=== PATIENT | female | born 1985 | race Caucasian/White ===

== ENCOUNTER 2023-01-27 08:28 | Emergency (ER) | payer BC, OTHER, SELFPAY ==
[2023-01-27] VITALS (10 sets, daily range): BP systolic 116–138; BP diastolic 65–84; PULSE 64–90; RESP 18–20; TEMP 36.6–36.9; O2SAT 95–100
--- NOTE | ~2023-01-27 | CT_ITS ---
EXAMINATION: CT brain wo con INDICATION: Headache COMPARISON: None TECHNIQUE: Standard unenhanced head CT. The dose-length product (DLP) was 605.33 mGy-cm. The mA was a djusted according to patient size. Iterative reconstruction technique was employed. FINDINGS: There is no intracranial hemorrhage, acute infarction, or abnormal mass lesion. The ventric les are normal. There is no abnormal mass effect or midline shift. The malone-white matter differentiat ion is normal. The basal cisterns are patent. The orbits are normal. The paranasal sinuses, mastoids and calvarium are normal. IMPRESSION: 1. No acute intracranial abnormality. Reviewed, dictated and finalized at location A.
--- NOTE | 2023-01-27 08:39 | ED.DIZZY ---
HPI - Dizziness General Chief Complaint: Dizziness Stated Complaint: lightheaded Time Seen by Provider: 01/27/23 08:39 Source: patient Mode of arrival: ambulatory Limitations: no limitations History of Present Illness HPI Narrative: 37-year-old female with no significant past medical history presents to the ER with a 2 day history of -- episodic lightheadedness. She was driving 2 days ago when she developed an episode of lightheadedness which lasted 10 minutes with spontaneous resolution. She does not have vertigo. A lightheadedness appears to get better when she gets up and starts moving around. -- subsequently she developed headache which is Occipital. headache is rated as 2/10. she has a history of intermittent headaches. No focal neuro deficit. No chest pain or shortness of breath MD elicited complaint: lightheadedness Onset (ago): day(s) ( started 2 days ago) Timing: sudden onset Severity: severe Description: lightheadedness, off-balance and near-syncope History of similar symptoms: No Exacerbating factors: position/lying down Relieving factors: other ( dizziness is better when she gets up) Associated symptoms: denies other symptoms Stroke scale total: 0 Related Data Home Medications Medication Instructions Recorded Confirmed norethindrone 1 mg-ethinyl 1 tablet PO DAILY 01/27/23 01/27/23 estradiol 20 mcg (21)-iron 75 mg (7) tablet (Michi Fe 09/29 (28)) Allergies Allergy/AdvReac Type Severity Reaction Status Date / Time No Known Allergies Allergy Mild Verified 11/19/09 17:13 Review of Systems Review of Systems: All systems reviewed & are unremarkable except as noted in HPI and below Constitutional: Constitutional: Reports as per HPI and Reports no additional constitutional complaints Eyes: Eyes: Reports as per HPI and Reports no additional eye complaints ENT: Reports system reviewed and no additional complaints, except as documented and Reports as per HPI Cardiovascular: Cardiovascular: Reports as per HPI and Reports no additional cardiovascular complaints Respiratory: Respiratory: Reports as per HPI and Reports no additional respiratory complaints Gastrointestinal: Gastrointestinal: Reports as per HPI and Reports no additional gastrointestinal complaints Genitourinary: Genitourinary: Reports no additional female genitourinary complaints Musculoskeletal: Musculoskeletal: Reports no additional musculoskeletal complaints and Reports as per HPI Integumentary/Breasts: Skin/Breast: Reports system reviewed and no additional complaints, except as docu and Reports as per HPI Neurologic: Reports system reviewed and no additional complaints, except as documented and Reports as per HPI Psychiatric: Psychiatric: Reports no additional psychiatric complaints and Reports as per HPI Endocrine: Endocrine: Reports no additional endocrine complaints and Reports as per HPI Hematologic/Lymphatic: Hematologic/Lymphatic: Reports no additional hematologic/lymphatic complaints and Reports as per HPI Allergic/Immunologic: Allergic/Immunologic: Reports no additional allergic/immunologic complaints and Reports as per HPI Exam Narrative: patient's systolicpressure decreases from 132 to 130 from standing to sleeping heart rate drops from 80-65 standing to sleeping Const: General: healthy appearing Nutritional Appearance: well nourished Orientation/consciousness: patient oriented x3 Limitations: no limitations HENMT: Head: normal to inspection Ears: TM's normal bilaterally Face/Nose/Sinus: Normal external nose present Face and sinus: normal facial exam Mouth: Yes Normal oral and palatal mucosa present Teeth and gingiva: dentition normal Throat: posterior oropharynx normal Eyes: Conjunctivae: conjunctivae normal Pupils: Equal, round and reactive pupils present EOM: EOMs intact bilaterally Direct Ophthalmoscopy: no photophobia Neck: Neck: normal visual inspection, no lymphadenopathy and no meninge
[2023-01-27 08:41] LABS: Glucose Point of Care 122 mg/dl (65-105)
--- NOTE | 2023-01-27 09:09 | ECG_ITS ---
Measurements Intervals [place] Rate: 62 P: 39 TX: 155 QRS: 29 QRSD: 89 T: 44 QT: 404 QTc: 412 Interpretive Statements SINUS RHYTHM WITH SINUS ARRHYTHMIA BASELINE ARTIFACT- I, III, AVR, AVL, AVF NORMAL ECG NO PREVIOUS ECG AVAILABLE FOR COMPARISON Electronically Signed On 01-27-2023 11:48:40 CDT by Luciano Deal D.O.
[2023-01-27 09:29] LABS: Basophils Absolute Auto 0.03 K/mm3 (0.00-0.10); Basophils Percent Auto 0.3 % (0.0-1.0); Eosinophils Absolute Auto 0.12 K/mm3 (0.02-0.50); Eosinophils Percent Auto 1.3 % (1.0-6.0); Hematocrit 41.6 % (35.0-49.0); Hemoglobin 13.2 g/dL (12.0-15.0); Immature Granulocyte Absolute 0.02 K/mm3 (0.00-0.00); Immature Granulocyte Percent A 0.2 % (0.0-0.0); Lymphocytes Absolute Auto 2.44 K/mm3 (1.10-4.50); Lymphocytes Percent Auto 26.7 % (18.0-42.0); Mean Corpuscular HGB Conc 31.7 g/dL (32.0-36.0); Mean Corpuscular Hemoglobin 29.1 pg (27.0-31.0); Mean Corpuscular Volume 91.6 fL (78.0-102.0); Mean Platelet Volume 10.4 fl (9.2-11.8); Monocytes Absolute Auto 0.57 K/mm3 (0.10-0.90); Monocytes Percent Auto 6.2 % (2.0-11.0); Neutrophils Percent Auto 65.3 % (50.0-70.0); Platelet Count Result 258 K/mm3 (150-420); Red Blood Count 4.54 M/mm3 (4.20-5.40); Red Cell Distribution Width 12.3 % (11.6-14.4); White Blood Count 9.1 K/mm3 (4.8-10.8)
[2023-01-27 09:47] LABS: Lactic Acid Reflex 2.5 mmol/L (0.4-2.0)
[2023-01-27 09:49] LABS: Alanine Aminotransferase 11 U/L (14-59); Albumin Level 3.2 g/dL (3.4-5.0); Alkaline Phosphatase 60 U/L (46-116); Anion Gap 11 mmol/L (8-16); Aspartate Amino Transferase < 10 U/L (15-37); Bilirubin,Total 0.2 mg/dL (0.00-1.00); Blood Urea Nitrogen 14 mg/dL (7-18); Calcium 8.7 mg/dL (8.5-10.1); Carbon Dioxide 23 mmol/L (21-32); Chloride 105 mmol/L (98-108); Estimated CRCL calculation 113 ml/min; Estimated Glomerular Filt Rate > 60; Glucose 131 mg/dL (70-99); NT Pro B Type Natriuretic Pept 146 pg/mL (0-125); Osmolality Calculated 290 mOsm/kg (285-295); Potassium 3.6 mmol/L (3.5-5.1); Sodium 139 mmol/L (136-145); Total Protein 7.3 g/dL (6.4-8.2)
[2023-01-27 09:54] LABS: Thyroid Stimulating Hormone 6.41 uIU/mL (0.36-3.74)
[2023-01-27 09:55] LABS: Troponin I < 4.0 ng/L (0.00-60.4)
[2023-01-27 10:04] LABS: Influenza A QL RT-PCR Negative (Negative); Influenza B QL RT-PCR Negative (Negative); SARS-CoV-2 RNA PCR Negative (Negative)
[2023-01-27 10:15] LABS: RSV RNA, RT-PCR Negative (Negative)
[2023-01-27] MEDS: ACETAMINOPHEN 325 MG TABLET 650 MG PO (10:17)
[2023-01-27 10:22] LABS: Appearance Urine Clear (Clear); Bilirubin Urine Negative (Negative); Blood Urine 2+ (Negative); Color Urine Light Yellow (Yellow); Glucose Urine UA Negative (Negative); Ketones Urine Negative (Negative); Leukocyte Esterase Ur Negative LEU/UL (Negative); Nitrate Urine Negative (Negative); Protein Urine Negative (Negative); Urobilinogen Urine 0.2 mg/dL (0.2-1.0)
[2023-01-27 10:29] LABS: Add Urine Microscopic? YES
[2023-01-27 10:30] LABS: Bacteria Urine Trace /hpf; Squamous Epithelial Cell Urine Few /hpf (Few); WBC Urine None seen /hpf (0-3)
[2023-01-27 10:31] LABS: Pregnancy On Board Control Positive; Urine Pregnancy Test Negative
[2023-01-27] MEDS: LACTATED RINGERS 1,000 ML 999 ML IV CONT (10:34)
[2023-01-27 12:26] LABS: Reflex Lactic Acid Yes or No Add Lactic
== END 2023-01-27 11:38 | disposition home or self-care (01) ==
PROVIDERS: Emergency Provider Internal Medicine Critical Care Medicine
DX: R42 Dizziness and giddiness (principal); R51.9 Headache, unspecified; R31.29 Other microscopic hematuria; E03.9 Hypothyroidism, unspecified; Z20.822 Contact with and (suspected) exposure to COVID-19
CPT/HCPCS: 36415; 70450; 80053; 81001; 81025; 82948; 83605; 83880; 84443; 84484; 85025; 87637; 93005; 96360; 99284; A9270; J7120

== ENCOUNTER 2024-01-23 12:31 | Emergency (ER) | payer OTHER, SELFPAY ==
[2024-01-23 12:34] VITALS: BP 137/73; PULSE 86; RESP 17; TEMP 36.5; O2SAT 100
--- NOTE | 2024-01-23 14:07 | ECG_ITS ---
SEE SCANNED COPY FOR CONFIRMED REPORT MTDD
[2024-01-23 14:19] VITALS: BP 133/62; PULSE 67
[2024-01-23 14:20] VITALS: BP 119/60; PULSE 63
[2024-01-23 14:22] VITALS: BP 107/78; PULSE 68
[2024-01-23] MEDS: KETOROLAC 30 MG/ML VIAL (*BKC) IV PUSH (14:36)
[2024-01-23] MEDS: SODIUM CHLORIDE 0.9% IV 1,000 ML 999 ML IV CONT (14:37)
[2024-01-23] MEDS: MECLIZINE HCL 25 MG TABLET PO (14:37)
[2024-01-23 14:54] LABS: Basophils Percent Auto 0.3 % (0.2-1.2); Eosinophils Percent Auto 0.1 % (0-4.4); Hematocrit 40.7 % (37.0-47.0); Hemoglobin 13.2 g/dL (12.0-15.0); Immature Granulocyte Absolute 0.03 K/mm3 (0.00-0.031); Immature Granulocyte Percent A 0.3 % (0-0.5); Lymphocytes Absolute Auto 1.85 K/mm3 (0.9-3.2); Lymphocytes Percent Auto 15.7 % (18.3-44.2); Mean Corpuscular HGB Conc 32.4 g/dl (32-36); Mean Corpuscular Volume 89.5 fl (80-100); Mean Platelet Volume 10.8 fl (7.4-10.4); Monocytes Absolute Auto 0.5 K/mm3 (0.1-0.6); Neutrophils Absolute Auto 9.4 K/mm3 (1.3-6.7); Neutrophils Percent Auto 79.6 % (45.5-73.1); Platelet Count Result 293 k/mm3 (150-375); Red Blood Count 4.55 M/mm3 (4.2-5.4); Red Cell Distribution Width 12.7 % (11.5-14.5); White Blood Count 11.8 K/mm3 (4.5-10.0)
[2024-01-23 15:04] LABS: Alanine Aminotransferase 20 U/L (6-35); Albumin Level 4.4 g/dL (3.5-5.1); Alkaline Phosphatase 68 U/L (38-126); Anion Gap 9 mmol/L (4-12); Aspartate Amino Transferase 21 U/L (14-36); Bilirubin,Total 0.6 mg/dL (0.2-1.3); Blood Urea Nitrogen 10 mg/dL (7-17); Carbon Dioxide 20 mmol/L (22-30); Chloride 109 mmol/L (98-107); Estimated CRCL calculation 160 ml/min; Estimated Glomerular Filt Rate > 60; Glucose 102 mg/dL (65-110); Potassium 4.3 mmol/L (3.4-5.0); Sodium 138 mmol/L (137-145)
[2024-01-23 15:32] VITALS: BP 127/64; PULSE 65; RESP 19; O2SAT 100
--- NOTE | 2024-01-23 15:42 | ED.GENADULT ---
HPI - General Adult General Chief complaint: Unspecified Stated complaint: hot flashes and headache Time Seen by Provider: 01/23/24 13:24 History of Present Illness HPI narrative: Patient is a 38-year-old female who presents ER with hot flashes and dizziness as well as headache. Ongoing over last week. She has been to multiple ERs. She has had imaging of her head. She reports the pain is in her left ear. She will be out moving she will develop a hot flash going down to her legs become lightheaded. Mild nausea. No history of vertigo. No sinus congestion or sore throat or productive cough. denies trauma. Has tried Tylenol and ibuprofen without improvement in pain. Related Data Allergies Allergy/AdvReac Type Severity Reaction Status Date / Time bupropion [From Wellbutrin] Allergy Unknown Verified 01/23/24 12:33 Review of Systems Review of Systems: All systems reviewed & are unremarkable except as noted in HPI and below Constitutional: Constitutional: Reports no additional constitutional complaints ENT: Denies ear discharge, Reports otalgia, Reports headache(s), Denies nasal congestion and Denies nasal discharge Cardiovascular: Cardiovascular: Reports no additional cardiovascular complaints Respiratory: Respiratory: Reports no additional respiratory complaints Genitourinary: Genitourinary: Reports no additional female genitourinary complaints [facility] Past Medical History Medical History (Updated 01/23/24 @ 16:38 by Valentin Goodwin MD) Depression Exam Narrative: GENERAL: Well-appearing, well-nourished, and in no acute distress. HEAD: Normocephalic, atraumatic. ENT: Mucous membranes moist. normal right TM and ear canal. Left ear canal free of cerumen and left tympanic membrane with multiple her bubbles behind it. NECK: Supple. CHEST: Clear to auscultation. No respiratory distress. HEART: Regular rate and rhythm. Normal peripheral pulses. EXTREMITIES: Normal range of motion. No edema. SKIN: Warm, dry, no rash. NEURO: Alert and oriented x3. PSYCH: Normal mood and affect. Course Course Emergency Course: Patient felt to have otalgia vertigo related to pressure behind the eardrum. Recommend scheduled antihistamines to help with this issue. Tylenol and ibuprofen for pain at home. Patient received IV fluid. Vital Signs Vital signs: Vital Signs Temperature 97.7 F 01/23/24 12:34 Pulse Rate 86 01/23/24 12:34 Respiratory Rate 17 01/23/24 12:34 Blood Pressure 137/73 01/23/24 12:34 Pulse Oximetry 100 01/23/24 12:34 Oxygen Delivery Room Air 01/23/24 12:34 Temperature 97.7 F 01/23/24 12:34 Pulse Rate 68 01/23/24 14:22 Respiratory Rate 17 01/23/24 12:34 Blood Pressure 107/78 01/23/24 14:22 Pulse Oximetry 100 01/23/24 12:34 Oxygen Delivery Room Air 01/23/24 12:34 Medical Decision Making Vital Signs Vital Signs: Vital Signs Temperature 97.7 F 01/23/24 12:34 Pulse Rate 86 01/23/24 12:34 Respiratory Rate 17 01/23/24 12:34 Blood Pressure 137/73 01/23/24 12:34 Pulse Oximetry 100 01/23/24 12:34 Oxygen Delivery Room Air 01/23/24 12:34 Temperature 97.7 F 01/23/24 12:34 Pulse Rate 68 01/23/24 14:22 Respiratory Rate 17 01/23/24 12:34 Blood Pressure 107/78 01/23/24 14:22 Pulse Oximetry 100 01/23/24 12:34 Oxygen Delivery Room Air 01/23/24 12:34 Lab Data 01/23/24 14:37 01/23/24 14:37 Labs: Lab Results 01/23/24 Range/Units 14:37 WBC 11.8 H (4.5-10.0) K/mm3 RBC 4.55 (4.2-5.4) M/mm3 Hgb 13.2 (12.0-15.0) g/dL Hct 40.7 (37.0-47.0) % MCV 89.5 (80-100) fl MCH 29.0 (26-34) pg MCHC 32.4 (32-36) g/dl RDW 12.7 (11.5-14.5) % Plt Count 293 (150-375) k/mm3 MPV 10.8 H (7.4-10.4) fl Immature Gran % (Auto) 0.3 (0-0.5) % Neut % (Auto) 79.6 H (45.5-73.1) % Lymph % (Auto) 15.7 L (18.3-44.2) % [place] % (Auto) 4.0 (2.6-8.5) % Eos % (Auto) 0.1
[2024-01-23 16:31] VITALS: BP 130/86; PULSE 78; RESP 16; O2SAT 100
== END 2024-01-23 16:57 | disposition home or self-care (01) ==
PROVIDERS: Emergency Provider Emergency Medicine
DX: H92.02 Otalgia, left ear (principal); R42 Dizziness and giddiness
CPT/HCPCS: 36415; 80053; 85025; 93005; 96361; 96374; 99284; A9270; J1885; J7030

== ENCOUNTER 2024-02-27 07:41 | Emergency (ER) | payer OTHER, SELFPAY ==
[2024-02-27] VITALS (23 sets, daily range): BP systolic 103–126; BP diastolic 61–88; PULSE 64–93; RESP 14–23; TEMP 36.8; O2SAT 95–100
--- NOTE | 2024-02-27 07:57 | ECG_ITS ---
Test Date: 2024-02-27 07:54:41 Measurements Intervals [place] Rate: 88 P: 43 ME: 145 QRS: 21 QRSD: 99 T: 42 QT: 356 QTc: 431 Interpretive Statements SINUS RHYTHM NONSPECIFIC ST ABNORMALITY FAMILY SEVERE No previous ECG available for comparison Electronically Signed On 02-27-2024 15:14:46 CDT by Walter Padilla M.D.
[2024-02-27] MEDS: ONDANSETRON INJ 4 MG/2 ML VIAL IV PUSH (08:46)
[2024-02-27] MEDS: SODIUM CHLORIDE 0.9% IV 1,000 ML 999 ML IV CONT (08:46)
[2024-02-27 08:51] LABS: Basophils Absolute Auto 0.1 K/mm3 (0.0-0.1); Basophils Percent Auto 0.5 % (0.2-1.2); Eosinophils Absolute Auto 0.1 K/mm3 (0-0.3); Eosinophils Percent Auto 0.9 % (0-4.4); Hematocrit 38.1 % (37.0-47.0); Hemoglobin 12.3 g/dL (12.0-15.0); Immature Granulocyte Absolute 0.03 K/mm3 (0.00-0.031); Immature Granulocyte Percent A 0.3 % (0-0.5); Lymphocytes Absolute Auto 1.57 K/mm3 (0.9-3.2); Lymphocytes Percent Auto 15.6 % (18.3-44.2); Mean Corpuscular HGB Conc 32.3 g/dl (32-36); Mean Corpuscular Hemoglobin 28.9 pg (26-34); Mean Corpuscular Volume 89.6 fl (80-100); Monocytes Absolute Auto 0.6 K/mm3 (0.1-0.6); Neutrophils Absolute Auto 7.7 K/mm3 (1.3-6.7); Neutrophils Percent Auto 76.7 % (45.5-73.1); Platelet Count Result 265 k/mm3 (150-375); Red Blood Count 4.25 M/mm3 (4.2-5.4); Red Cell Distribution Width 13.1 % (11.5-14.5); White Blood Count 10.1 K/mm3 (4.5-10.0)
[2024-02-27 09:02] LABS: Alanine Aminotransferase 21 U/L (6-35); Albumin Level 3.9 g/dL (3.5-5.1); Alkaline Phosphatase 60 U/L (38-126); Anion Gap 6 mmol/L (4-12); Aspartate Amino Transferase 23 U/L (14-36); Bilirubin,Total 0.4 mg/dL (0.2-1.3); Blood Urea Nitrogen 15 mg/dL (7-17); Calcium 8.6 mg/dL (8.4-10.2); Carbon Dioxide 20 mmol/L (22-30); Chloride 112 mmol/L (98-107); Estimated CRCL calculation 161 ml/min; Estimated Glomerular Filt Rate > 60; Glucose 105 mg/dL (65-110); Potassium 4.2 mmol/L (3.4-5.0); Sodium 138 mmol/L (137-145)
--- NOTE | 2024-02-27 10:18 | ED.GENADULT ---
HPI - General Adult General Chief complaint: Dizziness Stated complaint: shaky, headache, sob Time Seen by Provider: 02/27/24 07:43 History of Present Illness HPI narrative: Patient is a 38-year-old female who presents ER with feeling warm and flushed and dizzy. Sudden onset. [place] like her previous vertigo when she took meclizine. Symptoms reoccurred. They gave her chest tightness or shortness of breath. No chest pain. Denies fevers chills or sweats. Not describe aggravating or alleviating factors. She has been taking the Zyrtec daily. Related Data Allergies Allergy/AdvReac Type Severity Reaction Status Date / Time bupropion [From Wellbutrin] Allergy Unknown Verified 02/27/24 10:37 Review of Systems Review of Systems: All systems reviewed & are unremarkable except as noted in HPI and below Constitutional: Constitutional: Reports no additional constitutional complaints ENT: Reports dizziness, Denies nasal congestion and Denies sore throat Cardiovascular: Cardiovascular: Reports no additional cardiovascular complaints Respiratory: Respiratory: Denies cough, Reports dyspnea and Denies wheezing Gastrointestinal: Gastrointestinal: Reports no additional gastrointestinal complaints Musculoskeletal: Musculoskeletal: Reports no additional musculoskeletal complaints [facility] Past Medical History Medical History (Updated 02/27/24 @ 10:41 by Valentin Goodwin MD) Depression Exam Narrative: GENERAL: Well-appearing, well-nourished, and in no acute distress. HEAD: Normocephalic, atraumatic. EYES: PERRL and EOMI. ENT: Mucous membranes moist. Mild air-fluid behind left tympanic membrane. Ear canals normal. CHEST: Clear to auscultation. No respiratory distress. HEART: Regular rate and rhythm. Normal peripheral pulses. ABDOMEN: Soft, nontender, nondistended. EXTREMITIES: Normal range of motion. No edema. SKIN: Warm, dry, no rash. NEURO: Alert and oriented x3. PSYCH: Normal mood and affect. Course Course Emergency Course: Patient resting comfortably. Reports mild headache. Will give Toradol. Labs unremarkable. Orthostatics negative. Discharge. Vital Signs Vital signs: Vital Signs Temperature 98.2 F 02/27/24 07:45 Pulse Rate 86 02/27/24 07:45 Respiratory Rate 18 02/27/24 07:45 Blood Pressure 126/88 02/27/24 07:45 Pulse Oximetry 100 02/27/24 07:45 Oxygen Delivery Room Air 02/27/24 07:45 Temperature 98.2 F 02/27/24 07:45 Pulse Rate 85 02/27/24 08:05 Respiratory Rate 18 02/27/24 07:45 Blood Pressure 122/75 02/27/24 08:05 Pulse Oximetry 100 02/27/24 07:45 Oxygen Delivery Room Air 02/27/24 07:45 Medical Decision Making Vital Signs Vital Signs: Vital Signs Temperature 98.2 F 02/27/24 07:45 Pulse Rate 86 02/27/24 07:45 Respiratory Rate 18 02/27/24 07:45 Blood Pressure 126/88 02/27/24 07:45 Pulse Oximetry 100 02/27/24 07:45 Oxygen Delivery Room Air 02/27/24 07:45 Temperature 98.2 F 02/27/24 07:45 Pulse Rate 85 02/27/24 08:05 Respiratory Rate 18 02/27/24 07:45 Blood Pressure 122/75 02/27/24 08:05 Pulse Oximetry 02/27/24 07:45 Oxygen Delivery Room Air 02/27/24 07:45 Lab Data 02/27/24 08:42 02/27/24 08:42 Labs: Lab Results 02/27/24 Range/Units 08:42 WBC 10.1 H (4.5-10.0) K/mm3 RBC 4.25 (4.2-5.4) M/mm3 Hgb 12.3 (12.0-15.0) g/dL Hct 38.1 (37.0-47.0) % MCV 89.6 (80-100) fl MCH 28.9 (26-34) pg MCHC 32.3 (32-36) g/dl RDW 13.1 (11.5-14.5) % Plt Count 265 (150-375) k/mm3 MPV 10.0 (7.4-10.4) fl Immature Gran % (Auto) 0.3 (0-0.5) % Neut % (Auto) 76.7 H (45.5-73.1) % Lymph % (Auto) 15.6 L (18.3-44.2) % [place] % (Auto) 6.0 (2.6-8.5) % Eos % (Auto) 0.9 (0-4.4) % Baso % (Auto) 0.5 (0.2-1.2) % Lymph # (Auto) 1.57 (0.9-3.2) K/mm3 [place] # (Auto) 0.6 (0.1-0.6) K/mm3 Eos # (Auto) 0.1 (0-0.3) K/mm3 Baso # (Auto) 0.1
[2024-02-27] MEDS: KETOROLAC 30 MG/ML VIAL (*BKC) IV PUSH (10:37)
== END 2024-02-27 10:52 | disposition home or self-care (01) ==
PROVIDERS: Emergency Provider Emergency Medicine
DX: R42 Dizziness and giddiness (principal); R94.31 Abnormal electrocardiogram [ECG] [EKG]
CPT/HCPCS: 36415; 80053; 85025; 93005; 96361; 96374; 96375; 99284; J1885; J2405; J7030

== ENCOUNTER 2024-12-09 21:42 | Emergency (ER) | payer OTHER, SELFPAY ==
--- NOTE | ~2024-12-09 | CT_ITS ---
History: Bilateral lower extremity paresthesias and subjective slurred speech PROCEDURE: CT head without contrast. COMPARISON: 01/27/2023 TECHNIQUE: Axial imaging of the head performed from the skull base to the vertex without IV contrast. Sagittal a nd coronal reformations obtained. DLP: 681 mGy-cm FINDINGS: The ventricles are normal in size, shape and position. There is no mass, mass effect or midline shift. There is no abnormal extra-axial fluid collection or intracranial hemorrhage. Visualized paranasal sinuses are clear. The mastoid air cells are well aerated. No acute displaced fractures within the overlying cranium. Impression: No acute intracranial hemorrhage or suspicious mass effect. Reviewed, dictated and finalized at location A. Impression: No acute intracranial hemorrhage or suspicious mass effect.
[2024-12-09 21:42] VITALS: TEMP 36.3
--- OUTSIDE RECORDS SUMMARY | 2024-12-09 21:44 | XMS_ITS | Clinical Summary ---
Author Organization [facility] Address [address] [place] [id number] Care Team Providers Care Saw Operator Name Role Phone SylviaAlanis TYLER Primary Care Provider [phone] Allergies Active Allergy Reactions Criticality Noted Date Comments Bupropion Nausea Only 01/21/2024 Shaky, headache, nausea Medications omeprazole (PRILOSEC) 10 MG capsule Take 1 capsule (10 mg total) by mouth daily. Active biotin 300 MCG Tab Take 5,000 mg by mouth daily. Active Active Problems No known active problems Family History Medical History Relation Comments Diabetes Father Relation Status Comments Father Social History Tobacco Use Types Packs/Day Years Used Date Smoking Tobacco: Every Day Cigarettes Smokeless Tobacco: Never Tobacco Cessation:Ready to Q uit: Not Asked; Counseling Given: Not Answered Alcohol Use Standard Drinks/Week Comments Never 0 (1 standard drink = 0.6 oz pur e alcohol) Comments No Sex and Gender Information Value Date Recorded Sex Assigned at Not on file Legal Sex Female 5:44 PM SIGN LANGUAGE INTERPRETER Gender Identity Not on file Sexual Orientation Not on file Last Filed Vital Signs Vital Sign Reading Time Taken Comments Blood Pressure 157/71 03/05/2024 6:22 PM CDT Pulse 76 03/05/2024 6:22 PM CDT Temperature 36.5 C (97.7 F) 03/05/2024 6:22 PM CDT Respiratory Rate 20 03/05/2024 6:22 PM CDT Oxygen Saturation 96% 03/05/2024 6:22 PM CDT Inhaled Oxygen Concentration - - Weight 129.7 kg (286 lb) 03/05/2024 6:22 PM CDT Height 175.3 cm (5' 9 ) 03/05/2024 6:22 PM CDT Body Mass Index 42.23 03/05/2024 6:22 PM CDT Plan of Treatment Health Maintenance Due Date Last Done Comments Cervical Cancer Screening Pa p Smear (Age 30 to 64) Every 3 Years 1986 Annual Physical 1989 Pneumococcal Vaccine: Pediat rics (0 to 5 Years) and At-Risk Patients (6 to 64 Years) (1 of 2 - PCV) 1992 Hepatitis C 2004 DTaP, Tdap and Td Vaccines ( 1 - Tdap) 2005 Hepatitis B Vaccines (1 of 3 - 19+ 3-dose series) 2005 Cervical Cancer Screening Pa p with HPV Testing (Age 30 to 64) Every 5 Years 2016 Cervical Cancer Screening with HPV 2016 COVID-19 Vaccine (2023-2 5 season) 2024 HPV Vaccines Aged Out No longer eligi ble based on patient's age to complete this topic Meningococcal B Vaccine Aged Out No l onger eligible based on patient's age to complete this topic Meningococcal Vaccine Aged Out No melissa demetria eligible based on patient's age to complete this topic RSV Immunizations Under 20 Months Aged Out No longer eligible based on patient's age to complete this topic Insurance [facility] [place] [address] Care Teams Saw Operator Relationship Specialty Start Date End Date Alanis Ward NP [address] [address] PCP - General NURSE PRACTITIONER 01/19/24
--- OUTSIDE RECORDS SUMMARY | 2024-12-09 21:44 | XMS_ITS | Referral Summary ---
Author Organization [facility] Address [address] [place] [id number] Care Team Providers Care Nutrition Intern Name Role Phone Alanis Ward NP Primary Care Provider + Allergies Active Allergy Reactions Criticality Noted Date Comments Clindamycin Shortness of breath High 05/16/2024 Bupropion Headache Low 05/16/2024 Medications omeprazole (PriLOSEC) 10 mg capsule Take 1 capsule (10 mg total) by mouth daily Active topiramate (TOPAMAX) 15 mg capsule Take 1 capsule (15 mg total) by mouth daily Active Microgestin 1.5/30, 21, 1.5-30 mg-mcg tablet per tablet Take 1 tablet by mouth once daily 84 tablet Active Additional Information Patient not taking.Reported on 05/16/2024 FLUoxetine (PROzac) 40 mg capsule Take 1 capsule (40 mg total) by mouth daily Active Active Problems Problem Noted Date Diagnosed Date Sensorineural hearing loss ( SNHL) of left ear with unrestricted hearing of right ear 05/16/2024 Assessment & Plan (05/16/2024 12:09 PM CDT): Hearing test - Normal hearing, suspect referred ear pressure and pain from neck and jaw Follow up in with Dentist Referred otalgia of left ear 05/16/2024 Assessment & Plan (05/16/2024 8:49 AM CDT): Hearing test Follow up in with Dentist TMJ discussed and Handout provided Social History Tobacco Use Types Packs/Day Years Used Date Smoking Tobacco: Never Tobacco Cessation:Counseling Given: Not Answered PHQ-2 Answer Date Recorded PHQ-2 Total Score (If total score is 3 or more points, staff should administer the PHQ-9) 0 02/26/2023 Personal Safety Answer Date Recorded Getting School Help Needed Not on file 08/31 Comments No Sex and Gender Information Value Date Recorded Sex Assigned at Not on file Legal Sex Female 2:29 PM CDT Gender Identity Not on file Sexual Orientation Not on file Last Filed Vital Signs Vital Sign Reading Time Taken Comments Blood Pressure 115/76 05/16/2024 8:17 AM CDT Pulse 72 05/16/2024 8:17 AM CDT Temperature - - Respiratory Rate 18 05/16/2024 8:17 AM CDT Oxygen Saturation 97% 05/16/2024 8:17 AM CDT Inhaled Oxygen Concentration - - Weight 132 kg (291 lb) 05/16/2024 8:17 AM CDT Height 175.3 cm (5' 9.02 ) 05/16/2024 8:17 AM CD T Body Mass Index 42.95 05/16/2024 8:17 AM CDT Plan of Treatment Not on file Procedures Procedure Name Priority Date/Time Associated Diagnosis Comments PAP AND HIGH RISK HPV, REFLEX TO GENOTYPING Routine 02/21/2022 10:44 AM CDT Well woman exam from Last 3 Months or Most Recently Relevant to Health Maintenance Results * Pap and High Risk HPV, reflex to Genotyping (02/21/2022 10:44 AM CDT) CLINICAL INFORMATION: [employer] [facility] Comment:Routine exam LMP [employer] [facility] Comment:12/26/2021 Previous Pap [employer] [facility] Comment:INFORMATION NOT PROV IDED Prev. Bx [employer] [facility] Comment:INFORMATION NOT PROV IDED SOURCE: [employer] [facility] Comment:Cervix, Endocervix Pap, specimen adequacy [employer] [facility] Comment: Satisfactory for evaluation. Endocervical/transformation zone component present. HPV interp [employer] [facility] Comment:Negative for intraep ithelial lesion or malignancy. Infection: [employer] [facility] Comment: Shift in vaginal vishal suggestive of bacterial vaginosis. Volleyball Assembler [employer] [facility] Comment: GRIJALVA, CT(ASCP) CT Screening location: [facility] [address] [place], [place] [address] Comment [facility] [employer] [facility] Comment: EXPLANATORY NOTE: The Pap is a screening test for cervical cancer. It is not a diagnostic test and is subject to false negative and false positive results. It is most reliable when a satisfactory sample, regularly obtained, is submitted with relevant clinical findings and history, and when the Pap result is evaluated along with historic and current clinical information. Human papillomavirus DNA, High Risk E6/E7 Not Detected NOT DETECTED [facility] [employer] [facility] [place] Comment: Not Detected High Risk HPV types (16,18,31,33,35,39,45,51,52, 56,58,59,66,68) were not detected. Other HPV types which cause anogenital lesions may be present. The significance of the other types of HPV in malignant processes has not been established. Methodology: Real Time PCR Thin prep 02/21/2022 10:4 4 AM CDT 02/22/2022 12:42 AM CDT Ashley Pena [facility] CYTOLOGY ORDERABLES F inal Result [facility] [address] [place] [address] [facility] [employer] [address] [address] [place] [phone] from Last 3 Months or Most Recently Relevant to Health Maintenance Insurance [facility] [address] Care Teams Nutrition Intern Relationship Specialty Start Date End Date Alanis Ward NP [address] [facility] [address] PCP - General Nurse Practitioner 05/16/24
--- OUTSIDE RECORDS SUMMARY | 2024-12-09 21:44 | XMS_ITS | Clinical Summary ---
Author Organization [facility] B Address [address] [place] [address] Care Team Providers Care Senior Java Software Engineer Name Role Phone Alanis Ward NP Primary [...] with Dentist TMJ discussed and Handout provided Surgical History Surgery Date Site/Laterality Comments OVARIAN CYSTECTOMY Medical History Medical History Date Comments Migraines Social History Tobacco Use Types Packs/Day Years [...] on file Sexual Orientation Not on file Obstetrics History Para Term AB IAB SAB Ectopic Multiple Livin g Live Births 0 0 0 0 0 0 0 0 0 0 0 Last Filed Vital Signs Vital Sign Reading [...] 05/16/2024 8:17 AM CDT Plan of Treatment Health Maintenance Due Date Last Done Comments Hepatitis C Screening 1986 DTaP/Tdap/Td Vaccine (1 - Tdap) 1997 Varicella Vaccines (1 of 2 - 13+ 2-dose series) 1999 Hepatitis B Screening 2004 Cervical Cancer Screening 02/21/2023 02/21/2022 Depression Screening 02/27/2024 02/26/2023 Regular Well Visit/Exam 18-64 02/27/2024, 02/21/2022 Influenza Vaccine (#1) 2024 07/13/2023 HPV Vaccines Aged Out No longer eligi ble based on patient's age to complete this topic Pneumococcal vaccine <65 Aged Out No longer eligible based on patient's age to complete this topic Procedures Procedure Name Priority Date/Time Associated Diagnosis Comments PAP AND HIGH RISK HPV, REFLEX TO GENOTYPING Routine 02/21/2022 10:44 AM CDT Well woman exam from Last 3 Months or Most Recently Relevant to Health Maintenance Results * Pap and High Risk HPV, reflex to Genotyping (02/21/2022 10:44 AM CDT) CLINICAL INFORMATION: [facility] Comment:Routine exam LMP [facility] Comment:12/26/2021 Previous Pap [facility] Comment:INFORMATION NOT PROV IDED Prev. Bx [facility] Comment:INFORMATION NOT PROV IDED SOURCE: [facility] Comment:Cervix, Endocervix Pap, specimen adequacy [facility] Comment: Satisfactory for evaluation. Endocervical/transformation zone component present. HPV interp [facility] Comment:Negative for intraep ithelial lesion or malignancy. Infection: [facility] Comment: Shift in vaginal vishal suggestive of bacterial vaginosis. Immunology Specialist Que [facility] Comment: GRIJALVA, CT(ASCP) CT Scre[facility] ROBIN Espino [id number] Comment [facility] Comment: EXPLANATORY NOTE: The Pap is a [...] Risk E6/E7 Not Detected NOT DETECTED Camryn Foster /[facility] [place] Comment: Not Detected High Risk HPV types (16,18,31,33,35,39,45,51,52, 56,58,59,66,68) were not detected. Other HPV types which cause anogenital lesions may be present. The significance of the other types of HPV in malignant processes has not been established. Methodology: Real Time PCR Thin prep 02/21/2022 10:4 4 AM CDT 02/22/2022 12:42 AM CDT Ashley Pena SLIDE FASTENER CHAIN ASSEMBLER LAB CYTOLOGY ORDERABLES F inal Result [facility] [address] [address] ROBIN Patel [phone] [facility] [address] [facility] [place] [address] from Last 3 Months or Most Recently Relevant to Health Maintenance Insurance [facility] PL[facility] Care Teams Senior Java Software Engineer Relationship Specialty Start Date End Date Alanis Ward NP 2 [facility] [address] [address] PCP - General Nurse Practitioner 05/16/24
--- OUTSIDE RECORDS SUMMARY | 2024-12-09 21:44 | XMS_ITS | Encounter Summary ---
Author Organization [facility] Address [address] [place] [address] Phone Care Team Providers Care Passenger Agent Name Role Phone Alanis Ward APRN, KIKI Primary Care Provid er Bridget Dean APRN, GLUE PLANT OPERATOR Unavailable [phone] Reason for Visit * Reason Comments Medication Refill Encounter Details Date Type Department Care Team (Late st Contact Info) Description 09/22/2023 Refill [facility] - Family Medicine [facility] [address] [place] [address] Alanis Ward APRN, KIKI [address] [address] Medication Refill Social History Tobacco Use Types Packs/Day Years Used Date Smoking Tobacco: Every Day Cigarettes 0.5 15 Passive Smoke Exposure: Current Smokeless Tobacco: Never Alcohol Use Standard Drinks/Week Comments Never 0 (1 standard drink = 0.6 oz pur e alcohol) PHQ-2 Answer Date Recorded Total Score - Questions 1-9 1 05/11 Education Answer Date Recorded What is the highest level of school you have completed or the highest degree you have received? 12th grade 01/30/2023 Sexually Active Control Partners Comments Yes Male Comments No Sex and Gender Information Value Date Recorded Sex Assigned at Not on file Legal Sex Female 3:48 PM CDT Gender Identity Female 07/23/2023 4:39 PM MEAT PRESS OPERATOR Sexual Orientation Straight 07/23/2023 4: 39 PM MEAT PRESS OPERATOR documented as of this encounter Miscellaneous Notes * Telephone Encounter - Abril Pastrana RN - 09/24/2023 9:45 AM CST Medication failed the protocol, provider to review and approve the medication order if appropriate. Requested Prescriptions Pending Prescriptions Disp Refills FLUoxetine (PROzac) 20 MG Capsule [Pharmacy Med Name: FLUoxetine HCl 20 MG Oral Capsule] 90 Capsule1 Sig: Take 1 capsule by mouth once daily SSRI (6 Month Refill Only) Protocol Failed - 09/22/2023 8:13 PM Failed - Patient has established therapy with SSRI for at least 6 months Failed - Has an encounter in the past 6 months with a depression, anxiety, adjustment disorder, OCD, or PTSD visit diagnosis Passed - No test in the past 12 months or most recent test was negative Passed - No active on record Passed - Visit with relevant provider in past 6 months or upcoming 90 days Recent Visits Date Type Provider Dept 08/24/23 Office Visit Alanis Ward APRN, CNP [facility] 07/13/23 Office Visit Alanis Ward APRN, CNP [facility] 05/25/23 Office Visit Alanis Ward APRN, CNP [facility] 03/26/23 Office Visit Alanis Ward APRN, KIKI [facility] [place] Showing recent visits within past 182 days and meeting all other requirements Future Appointments No visits were found meeting these conditions. Showing future appointments within next 90 days and meeting all other requirements PRESS OPERATOR documented in this encounter Plan of Treatment Upcoming Encounters Date Type Department Care Team (Late st Contact Info) Description 05/01/2025 9:45 AM CDT [facility] - [facility] [address] [place] [phone] Alanis Ward APRN, KIKI [address] [phone] documented as of this encounter Visit Diagnoses Diagnosis Irritability and anger Irritability documented in this encounter Additional Health Concerns Assessment Noted Time PHQ-9 Depression Total Score: 1 05/25/20 23 7:07 AM CDT documented as of this encounter Care Teams Passenger Agent Relationship Specialty Start Date End Date Alanis Ward APRN, GLUE PLANT OPERATOR [address] [place] [id number] PCP - General Advanced Practice Nurse 01/30/23 Bridget Dean APRN, GLUE PLANT OPERATOR #2 [facility], [address] [place] [address] Nurse Practitioner Cardiology 01/15/24 documented as of this encounter
--- OUTSIDE RECORDS SUMMARY | 2024-12-09 21:44 | XMS_ITS | Clinical Summary ---
Author Organization [facility] Address [address] [place] [address] Phone Care Team Providers Care Technician Plant And Maintenance Name Role Phone Alanis Ward APRN, SCREEN PRINTING SUPERVISOR Primary Care Provid er Bridget Dean APRN, SCREEN PRINTING SUPERVISOR Unavailable [phone]- [phone] Allergies Active Allergy Reactions Criticality Noted Date Comments Clindamycin Shortness of Breath High 05/16/2024 Bupropion Nausea 01/21/2024 Shaky, headache, nausea Medications omeprazole (PriLOSEC) 10 MG CAPSULE DELAYED RELEASE Take 10 mg by mouth. Active Acetaminophen (TYLENOL PO) Take by mouth. Active Syringe/Needle, Disp, (SYRINGE 3CC/23GX1 ) 23G X 1 3 ML MiscIndications :B12 deficiency USE DIRECTED 4 Each 4 Active IBUPROFEN PO Take by mouth. Active meclizine (ANTIVERT) 25 MG Tablet Take 1 Tablet by mouth 3 times daily as needed for Dizziness. 30 Tablet 4 Active topiramate (TOPAMAX) 15 MG CAPSULE SPRINKLEIndicat ions:Nonintract able episodic headache, unspecified headache type TAKE 1 CAPSULE BY MOUTH NIGHTLY 90 Capsule 1 4 Active estradiol (CLIMARA) 0.1 MG/24HR PATCH WEEKLY apply 1 patch topically once a week 5 Active Norethindrone, Contraceptive, 0.35 MG Tablet Take 1 Tablet by mouth daily. 4 Active FLUoxetine (PROzac) 20 MG CapsuleIndicati ons:Irritabilit y and anger Take 1 Capsule by mouth daily. 30 Capsule 5 Active FLUoxetine (PROzac) 20 MG CapsuleIndicati ons:Irritabilit y and anger Take 1 Capsule by mouth daily. 30 Capsule 5 12/01/19 25 Discontinu ed(Reorder ) Active Problems Problem Noted Date Diagnosed Date Vitamin D deficiency 01/16/2024 B12 deficiency 01/16/2024 Encounters Date Type Department Care Team Description 12/03/2024 [facility] [place] [address] Alanis Ward APRN, CNP 11/30/2024 MyChart RX Renewal [facility] [place] [address] Alanis Ward APRN, CNP Medication Renewal Reviewed 11/24/2024 6:00 PM CDT - 11/24/2024 11:59 PM CDT Hospital Encounter [facility] [address] [place] [address] Alanis Ward APRN, CNP Discharge Disposition: Discharged to home or Selfcare 11/22/2024 Travel 10/30/2024 9:45 AM CONCHE LOADER AND UNLOADER [facility] [place] [address] Alanis Ward APRN, CNP Prediabetes (Primary Dx); Irritability and anger Discharge Disposition: Discharged to home or Selfcare 10/28/2024 Travel 09/19/2024 4:15 PM CONCHE LOADER AND UNLOADER [facility] [place] [address] Andreea Miller APRN, CNP Fluid level behind tympanic membrane of both ears (Primary Dx); Environmental and seasonal allergies; Neck pain; Dizziness Discharge Disposition: Discharged to home or Selfcare 09/19/2024 Travel 09/18/2024 Telephone [facility] - Family Medicine [facility] [address] [place] [address] Alanis Ward APRN, KIKI from Last 3 Months Immunizations Immunization Administration Dates Next Due Influenza Vaccine, Quadrivalent, PF 07/13/2023 Family History Medical History Relation Name Comments Crohn's Disease Brother Diabetes Father Dad Relation Name Status Comments Brother Father Dad Social History Tobacco Use Types Packs/Day Years Used Date Smoking Tobacco: Every Day Cigarettes 0.5 15 Passive Smoke Exposure: Current Smokeless Tobacco: Never Tobacco Cessation:Ready to Q uit: Yes; Counseling Given: Not Answered Alcohol Use Standard Drinks/Week Comments Never 0 (1 standard drink = 0.6 oz pur e alcohol) [facility] [employer] Answer Date Recorded In the past 12 months has e electric, gas, oil, or water company threatened to shut off services in your home? No 09/19/2024 Social Connection and Isolation Panel [NHANES] A nswer Date Recorded In a typical week, how many times do you talk on the phone with family, friends, or neighbors? Three times a week 09/19/2024 How often do you get togethe r with friends or relatives? Once a week 09/19/2024 How often do you attend chur ch or gnosticist services? Never 09/19/2024 Do you belong to any clubs o r organizations such as orthodox groups, unions, fraternal or athletic groups, or school groups? No 09/19/2024 How often do you attend meet ings of the clubs or organizations you belong to? Never 09/19/2024 Are you , , di vorced, , never , or living with a partner? 09/19/2024 AUDIT-C Answer Date Recorded Q1: How often do you have a drink containing alcohol? Never 09/19/2024 Q2: How many drinks containi ng alcohol do you have on a typical day when you are drinking? Patient does not drink Q3: How often do you have si x or more drinks on one occasion? Never 09/19/2024 Overall Financial Resource Strain (CARDIA) Answe r Date Recorded How hard is it for you to pa y for the very basics like food, housing, medical care, and heating? Not hard at all 09/19/2024 PHQ-2 Answer Date Recorded Total Score - Questions 1-9 0 10/12 [facility] of Occupat ional [facility] - Occupational Stress Questionnaire Answer Date Recorded Do you feel stress - tense, restless, nervous, or anxious, or unable to sleep at night because your mind is troubled all the time - these days? Not at all 09/19/2024 Exercise Vital Sign Answer Date Recorde d On average, how many days pe r week do you engage in moderate to strenuous exercise (like a brisk walk)? 0 days 09/19/2024 On average, how many minutes do you engage in exercise at this level? 0 min 09/19/2024 Hunger Vital Sign Answer Date Recorded Within the past 12 months, y ou worried that your food would run out before you got the money to buy more. Never true 09/19/19 25 Within the past 12 months, t he food you bought just didn't last and you didn't have money to get more. Never true 09/19/2024 PRAPARE - Transportation Answer Date Re corded In the past 12 months, has l ack of transportation kept you from medical appointments or from getting medications? No 09/10 In the past 12 months, has l ack of transportation kept you from meetings, work, or from getting things needed for daily living? No 09/19/2024 Housing Stability Vital Sign Answer Bora e Recorded In the last 12 months, was t here a time when you were not able to pay the mortgage or rent on time? No 09/19/2024 In the past 12 months, how m any times have you moved where you were living? 0 09/19/2024 At any time in the past 12 m [facility], were you homeless or living in a long term (including now)? No 09/19/2024 Education Answer Date Recorded What is the highest level of school you have completed or the highest degree you have received? 12th grade 01/30/2023 Sexually Active Control Partners Comments Yes Oral Contraceptive Male Comments No Sex and Gender Information Value Date Recorded Sex Assigned at Not on file Legal Sex Female 3:48 PM CDT Gender Identity Female 07/23/2023 4:39 PM CONCHE LOADER AND UNLOADER Sexual Orientation Straight 07/23/2023 4: 39 PM CONCHE LOADER AND UNLOADER Last Filed Vital Signs Vital Sign Reading Time Taken Comments Blood Pressure 98/64 10/30/2024 9:40 AM CONCHE LOADER AND UNLOADER Pulse 68 10/30/2024 9:40 AM CONCHE LOADER AND UNLOADER Temperature 36.5 C (97.7 F) 10/30/2024 9:40 AM CONCHE LOADER AND UNLOADER Respiratory Rate 16 10/30/2024 9:40 AM CONCHE LOADER AND UNLOADER Oxygen Saturation 97% 10/30/2024 9:40 AM CONCHE LOADER AND UNLOADER Inhaled Oxygen Concentration - - Weight 135.6 kg (299 lb) 10/30/2024 9:40 AM CONCHE LOADER AND UNLOADER Height 175.3 cm (5' 9 ) 10/30/2024 9:40 AM CONCHE LOADER AND UNLOADER Body Mass Index 44.15 10/30/2024 9:40 AM CONCHE LOADER AND UNLOADER Plan of Treatment Upcoming Encounters Date Type Department Care Team (Late st Contact Info) Description 05/01/2025 9:45 AM CDT Office Visit [facility] - Family [facility] [address] [place] [address] Alanis Ward APRN, SCREEN PRINTING SUPERVISOR #[address] [address] Health Maintenance Due Date Last Done Comments Hepatitis C Virus (HCV) Screening 1986 TdaP Immunization 1986 Hepatitis B Immunization (1 of 3 - 19+ 3-dose series) 2005 Pneumococcal Immunization Combined (1 of 2 - PCV) 2005 HPV/Cotest 2016 Cervical Cancer Screening (CCS) 02/21/2025 Pap Smear 02/21/2025 02/21/2022 Respiratory Syncytial Virus (RSV) Immunization (Adult) (1 - 1-dose 75+ series) 2061 Influenza Immunization Completed 4, 07/13/2023 Meningococcal Immunization (ACWY) Aged Out No longer eligible based on patient's age to complete this topic Rotavirus Immunization Aged Out No lo nger eligible based on patient's age to complete this topic SARS-COV-2 Immunization Discontinued Procedures Procedure Name Priority Date/Time Associated Diagnosis Comments CT SINUSES W/O CONTRAST Routine 11/24/2024 6:25 PM CDT Chronic maxillary sinusitis POCT GLYCOSYLATED HEMOGLOBIN Routine 10/30/2024 9:54 AM CONCHE LOADER AND UNLOADER Prediabetes from Last 3 Months Results * CT SINUSES W/O CONTRAST (11/24/2024 6:25 PM CDT) Anatomical Region Laterality Modality Head N/A Computed Tomogra phy 11/29/2024 4:12 PM CDT Impressions 11/29/2024 4:14 PM CDT IMPRESSION: No evidence of sinusitis. Narrative 11/29/2024 4:14 PM CDT EXAM DESCRIPTION: CT SINUSES W/O CONTRAST REASON FOR STUDY: chronic sinus issues, messes with both ears, infections and vertigo. TECHNIQUE: Noncontrast scanning through the paranasal sinuses using bone algorithm. Reconstructed MPR images reviewed. All images stored on PACS. Automated exposure control was used as a dose optimization technique for this examination. COMPARISON: None FINDINGS: MAXILLARY SINUSES: No fluid levels or mucosal thickening. Ostiomeatal complexes are patent. ETHMOID AND FRONTAL SINUSES: No fluid levels or mucosal thickening. Frontal recesses are patent. SPHENOID SINUS: No fluid levels or mucosal thickening. Sphenoethmoid recesses are patent. NASAL CAVITY: The septum is slightly bowed to the right. ORBITS: Unremarkable with no mass or inflammatory changes. TMJS: Normal. MASTOIDS: Well-aerated. IACs symmetric, grossly normal. BRAIN: Limited view. No acute findings. OTHER: No other significant finding. THIS IS AN ELECTRONICALLY VERIFIED FINAL REPORT 11/29/2024 4:12 PM - Electronically signed by Hector Broussard M.D. MARY: MARY Report ID: [id number] Reading Location: [id number] Procedure Note Justen Broussard MD - 11/29/2024 EXAM DESCRIPTION: CT SINUSES W/O CONTRAST REASON FOR STUDY: chronic sinus issues, messes with both ears, infections and vertigo. TECHNIQUE: Noncontrast scanning through the paranasal sinuses using bone algorithm. Reconstructed MPR images reviewed. All images stored on PACS. Automated exposure control was used as a dose optimization technique for this examination. COMPARISON: None FINDINGS: MAXILLARY SINUSES: No fluid levels or mucosal thickening. Ostiomeatal complexes are patent. ETHMOID AND FRONTAL SINUSES: No fluid levels or mucosal thickening. Frontal recesses are patent. SPHENOID SINUS: No fluid levels or mucosal thickening. Sphenoethmoid recesses are patent. NASAL CAVITY: The septum is slightly bowed to the right. ORBITS: Unremarkable with no mass or inflammatory changes. TMJS: Normal. MASTOIDS: Well-aerated. IACs symmetric, grossly normal. BRAIN: Limited view. No acute findings. OTHER: No other significant finding. THIS IS AN ELECTRONICALLY VERIFIED FINAL REPORT 11/29/2024 4:12 PM - Electronically signed by Hector Broussard M.D. MARY: MARY Report ID: [id number] Reading Location: [place] [address] IMPRESSION: No evidence of sinusitis. Alanis Ward APRN, CNP IM CT ORDERABLES Fi nal Result * POCT GLYCOSYLATED HEMOGLOBIN (10/30/2024 9:54 AM CONCHE LOADER AND UNLOADER) HGB-A1C 5.9 4 - 6 % 10/30/2024 9:54 AM CONCHE LOADER AND UNLOADER Alanis Ward APRN, CNP POINT OF CARE TESTIN G (MANUAL) Final Result from Last 3 Months Insurance [facility] Care Teams Technician Plant And Maintenance Relationship Specialty Start Date End Date Alanis Ward APRN, SCREEN PRINTING SUPERVISOR #[address] [place] [phone] PCP - General Advanced Practice Nurse 01/30/23 Bridget Dean APRN, SCREEN PRINTING SUPERVISOR [address], [address] [place] [address] Nurse Practitioner Cardiology 01/15/24
--- OUTSIDE RECORDS SUMMARY | 2024-12-09 21:44 | XMS_ITS | Encounter Summary ---
Author Organization [facility] Address [address] [place] [address] Phone Care Team Providers Care Auto Damage Adjuster Name Role Phone Alanis aWrd APRN, CNP Primary Care Provid er Bridget Dean APRN, KIKI Unavailable +[phone]- [phone] Encounter Details Date Type Department Care Team (Late st Contact Info) Description 12/03/2024 Results Follow-Up [facility] - Family Medicine [facility] [address] [place] [address] Alanis Ward APRN, CNP #[address] [address] Social History Tobacco Use Types Packs/Day Years Used Date Smoking Tobacco: Every Day Cigarettes 0.5 15 Passive Smoke Exposure: Current Smokeless Tobacco: Never Alcohol Use Standard Drinks/Week Comments Never 0 (1 standard drink = 0.6 oz pur e alcohol) [facility] Utilities Answer Date Recorded In the past 12 months has [employer] electric, gas, oil, or water company threatened [...] often do you attend chur ch or mandaeism services? Never 09/19/2024 Do you belong to any clubs o r organizations such as hoahaoism groups, unions, fraternal or athletic groups, or [...] Total Score - Questions 1-9 0 10/12 [facility] Occupat ional Health - Occupational Stress Questionnaire Answer Date Recorded [...] any time in the past 12 m ont, were you homeless or living in a halfway (including now)? No 09/19/2024 Education Answer Date [...] CDT Gender Identity Female 07/23/2023 4:39 PM LANDMEN Sexual Orientation Straight 07/23/2023 4: 39 PM LANDMEN documented as of this encounter Progress Notes * Alanis Ward APRN, CNP - 12/03/2024 10:38 AM CDT Germmatters message sent documented in this encounter Plan of Treatment Upcoming Encounters Date Type Department Care Team (Late st Contact Info) Description 05/01/2025 9:45 AM CDT Office Visit [facility] - Family Medicine [facility] [address] [place] [address] Alanis Ward APRN, CNP [id number] [address] documented as of this encounter Visit Diagnoses Not on filedocumented in this encounter Additional Health Concerns Assessment Noted Time PHQ-9 Depression Total Score: 0 10/30/19 25 10:00 AM LANDMEN documented as of this encounter Care Teams Auto Damage Adjuster Relationship Specialty Start Date End Date Alanis Ward APRN, CNP [address] [place] [address] PCP - General Advanced Practice Nurse 01/30/23 Bridget Dean, ADMINISTRATIVE ANALYST, INJECTION MACHINE OPERATOR [address], [address] [place] [address] Nurse Practitioner Cardiology 01/15/24 documented as of this encounter
--- OUTSIDE RECORDS SUMMARY | 2024-12-09 21:44 | XMS_ITS | Encounter Summary ---
Author Organization [facility] Address [address] [place] [address] Phone Care Team Providers Care Entertainment Centre Manager Name Role Phone Alanis Ward APRN, KIKI Primary Care Provid er Bridget Dean APRN, HAND SIGN WRITER Unavailable [phone]- [phone] Reason for Visit * Reason Comments Medication Refill Encounter Details Date Type Department Care Team (Late st Contact Info) Description 03/16/2023 Refill [facility] Medical Group - Family Medicine [facility] [address] [place] [address] Alanis Ward APRN, KIKI [address] [address] Medication Refill Social History Tobacco Use Types Packs/Day Years Used Date Smoking Tobacco: Every Day Cigarettes 0.5 15 Passive Smoke Exposure: Current Smokeless Tobacco: Never Alcohol Use Standard Drinks/Week Comments Never 0 (1 standard drink = 0.6 oz pur e alcohol) Education Answer Date Recorded What is the highest level of school you have completed or the highest degree you have received? 12th grade 01/30/2023 Sexually Active Control Partners Comments Yes Male Comments No Sex and Gender Information Value Date Recorded Sex Assigned at Not on file Legal Sex Female 3:48 PM CDT Gender Identity Female 07/23/2023 4:39 PM STRAP FOLDING MACHINE OPERATOR Sexual Orientation Straight 07/23/2023 4: 39 PM STRAP FOLDING MACHINE OPERATOR COVID-19 Exposure Response Date Recorded In the last 10 days, have jolene cai been in contact with someone who was confirmed or suspected to have Coronavirus/COVID-19? No / Unsure 02/19/2023 7:04 AM CDT documented as of this encounter Miscellaneous Notes * Telephone Encounter - Abril Pastrana RN - 03/16/2023 2:30 PM CDT Medication failed the protocol, provider to review and approve the medication order if appropriate. Requested Prescriptions Pending Prescriptions Disp Refills topiramate (TOPAMAX) 15 MG CAPSULE SPRINKLE [Pharmacy Med Name: Topiramate 15 MG Oral Capsule Sprinkle] 30 Capsule 0 Sig: Take 1 capsule by mouth once daily for 30 days Not Delegated - Anticonvulsants Excluding Benzodiazepines Protocol Failed - 03/16/2023 11:13 AM Failed - This refill cannot be delegated Passed - Visit with relevant provider in past 12 months or upcoming 90 days Recent Visits Date Type Provider Dept 02/19/23 Office Visit Alanis Ward APRN, CNP [facility] 01/30/23 Office Visit Alanis Ward APRN, CNP [facility] Showing recent visits within past 365 days and meeting all other requirements Future Appointments Date Type Provider Dept 03/26/23 Appointment Alanis Ward APRN, CNP [facility] Showing future appointments within next 90 days and meeting all other requirements documented in this encounter Plan of Treatment Upcoming Encounters Date Type Department Care Team (Late st Contact Info) Description 05/01/2025 9:45 AM CDT [facility] - [facility] - [facility] [address] [place] [phone] Alanis Ward APRN, KIKI [address] [address] documented as of this encounter Visit Diagnoses Diagnosis Nonintractable episodic headache, unspecified headache type documented in this encounter Care Teams Entertainment Centre Manager Relationship Specialty Start Date End Date Alanis Ward APRN, HAND SIGN WRITER #[address] [place] [id number] PCP - General Advanced Practice Nurse 01/30/23 Bridget Dean APRN, HAND SIGN WRITER [address] [place] [address] Nurse Practitioner Cardiology 01/15/24 documented as of this encounter
--- OUTSIDE RECORDS SUMMARY | 2024-12-09 21:44 | XMS_ITS | Encounter Summary ---
Author Organization [facility] Address [address] [place] [address] Phone Care Team Providers Care Candy Forming Machine Operator Name Role Phone Alanis Ward APRN, KIKI Primary Care Provid er Bridget Dean APRN, INSOLE AND OUTSOLE PREPARER Unavailable [phone]- [phone] Reason for Visit * Reason Comments Medication Refill Encounter Details Date Type Department Care Team (Late Contact Info) Description 06/23/2023 Refill [facility] Medical Group - Family Medicine [facility] [address] [place] [address] Alanis Ward APRN, KIKI #[address] [address] Medication Refill Social History Tobacco [...] CDT Gender Identity Female 07/23/2023 4:[address]GE Sexual Orientation Straight 07/23/2023 4: [address]GE COVID-19 Exposure Response Date Recorded In the last 10 days, have yo u been in contact with someone who was confirmed or suspected to have Coronavirus/COVID-19? No / Unsure 05/25/2023 7:02 AM CDT documented as of this encounter Miscellaneous Notes * Telephone Encounter - Ligia Mendoza RN - 06/24/2023 9:26 AM CDT Medication failed the protocol, provider to review and approve the medication order if appropriate. Requested Prescriptions Pending Prescriptions Disp Refills FLUoxetine (PROzac) 20 MG Capsule [Pharmacy Med Name: FLUoxetine HCl 20 MG Oral Capsule] 90 Capsule0 Sig: Take 1 capsule by mouth once daily SSRI (6 Month Refill Only) Protocol Failed - 06/23/2023 10:04 AM Failed - Patient has established therapy with [...] days Recent Visits Date Type Provider Dept 05/25/23 Office Visit Alanis Ward APRN, CNP [facility] 03/26/23 Office Visit Alanis Ward APRN, CNP [facility] 02/19/23 Office Visit Alanis Ward APRN, CNP [facility] 01/30/23 Office Visit Alanis Ward APRN, KIKI [facility] Showing recent visits within past 182 days and meeting all other requirements Future Appointments Date Type Provider Dept 08/24/23 Appointment Alanis Ward APRN, CNP [facility] Showing future appointments within next 90 days and meeting all other requirements documented in this encounter Plan of Treatment Upcoming Encounters Date Type Department Care Team (Late st Contact Info) Description 05/01/2025 9:45 AM CDT Office Visit [facility] Medical Group - Family Medicine - [place] [address] [place] [address] Alanis Ward APRN, KIKI [address] [facility] [address] [place] [phone] documented as of this encounter Visit Diagnoses Diagnosis Irritability and anger Irritability documented in this encounter Additional Health Concerns Assessment Noted Time PHQ-9 Depression Total Score: 1 05/25/20 23 7:07 AM CDT documented as of this encounter Care Teams Candy Forming Machine Operator Relationship Specialty Start Date End Date Alanis Ward APRN, INSOLE AND OUTSOLE PREPARER #[address] [facility] [address] [place] [address] PCP - General Advanced Practice Nurse 01/30/23 Bridget Dean APRN, INSOLE AND OUTSOLE PREPARER [address] [facility], [address] [place] [address] Nurse Practitioner Cardiology 01/15/24 documented as of this encounter
[2024-12-09 21:49] VITALS: BP 126/63; PULSE 65; RESP 19; O2SAT 100
[2024-12-09 21:54] LABS: Glucose Point of Care 121 mg/dl (65-105)
--- NOTE | 2024-12-09 21:55 | ECG_ITS ---
Test Date: 2024-12-09 22:53:00 Measurements Intervals [place] Rate: 58 P: 36 OH: 149 QRS: 22 QRSD: 98 T: 34 QT: 414 QTc: 407 Interpretive Statements SINUS BRADYCARDIA BORDERLINE ECG No previous ECG available for comparison Electronically Signed On 12-10-2024 06:14:21 CDT by Luciano Deal D.O.
--- NOTE | 2024-12-09 21:57 | ED_ITS ---
HPI - Dizziness General Chief Complaint: Headache Stated Complaint: MYNOR PEREIRA Time Seen by Provider: 12/09/24 21:50 Source: patient Mode of arrival: ambulatory Limitations: no limitations History of Present Illness HPI Narrative: Patient is a 39-year-old female with dizziness and left ear pains and jaw pains and posterior headache for the past few hours. She had this a year ago roughly and has been to many specialists without a final diagnosis. not the worst headache of her life. MD elicited complaint: dizziness, lightheadedness, near syncope and disequilibrium Pertinent past history: other ( Patient has on and off symptoms of similar symptoms) Onset (ago): day(s) ( 1) Timing: gradual onset Severity: mild Description: lightheadedness, off-balance, near-syncope and ongoing Context: change in medication History of similar symptoms: Yes Exacerbating factors: nothing Relieving factors: other ( Patient took a meclizine with some relief) Associated symptoms: denies other symptoms Associated neuro symptoms: other ( negative) Related Data Home Medications ?Medication ?Instructions ?Recorded ?Confirmed ?Last Taken ?Type fluoxetine 40 mg capsule 40 mg PO 05/05/24 09/18/24 Unknown History omeprazole 20 mg capsule,delayed 20 mg PO DAILY 05/21/24 09/18/24 Unknown History release topiramate 15 mg sprinkle capsule mg PO 05/21/24 09/18/24 Unknown History multivitamin 1 tablet PO DAILY 09/18/24 09/18/24 Unknown History Allergies Allergy/AdvReac Type Severity Reaction Status Date / Time bupropion (From Wellbutrin) Allergy Intermediate Difficulty Verified 12/09/24 22:00 Breathing clindamycin Allergy Mild Difficulty Verified 12/09/24 22:00 Breathing Review of Systems 2 Review of Systems: All systems reviewed & are unremarkable except as noted in HPI and below Constitutional: Constitutional: Reports no additional constitutional complaints Eyes: Eyes: Reports no additional eye complaints ENT: Reports system reviewed and no additional complaints, except as documented Cardiovascular: Cardiovascular: Reports no additional cardiovascular complaints Respiratory: Respiratory: Reports no additional respiratory complaints Gastrointestinal: Gastrointestinal: Reports no additional gastrointestinal complaints Genitourinary: Genitourinary: Reports no additional female genitourinary complaints Musculoskeletal: Musculoskeletal: Reports no additional musculoskeletal complaints Integumentary/Breasts: Skin/Breast: Reports system reviewed and no additional complaints, except as docu Neurologic: Reports system reviewed and no additional complaints, except as documented Psychiatric: Psychiatric: Reports no additional psychiatric complaints Endocrine: Endocrine: Reports no additional endocrine complaints Hematologic/Lymphatic: Hematologic/Lymphatic: Reports no additional hematologic/lymphatic complaints Allergic/Immunologic: Allergic/Immunologic: Reports no additional allergic/immunologic complaints PMFSH Past Medical History Medical History Amenorrhea Depression Surgical History Surgical History History of hysteroscopy D & C H/O unilateral salpingectomy R ovary Family History Family History Father Diabetes mellitus Social History Social History Smoking status: Former smoker Tobacco type: cigarettes Smoking end date: 05/24/24 Alcohol intake: never Substance use: never Substance use type: does not use Do You Feel Safe in your Home?: Yes Lack of Transportation: No Lack of Food: Never True Current Housing: I Have Housing Concerned About Future Housing: No Difficulty Paying Gas/Electric Bills: No Difficulty Paying for Meds: No Currently Unemployed: No Education: High School Diploma/GED Difficulty w/ Childcare or Family Care: No Living arrangements: with family Occupation/Education: occupation Gender identity (if verbalized by the patient): Female Exam 2 Const: General: healthy appearing Nutritional Appearance: well nourished Orientation/consciousness: patient oriented x3 Limitations: no limitations HENMT: Head: normal to inspection Ears: TM's normal bilaterally F seymour/Nose/Sinus: Normal external nose present Eyes: Conjunctivae: conjunctivae normal Pupils: Equal, round and reactive pupils present EOM: EOMs intact bilaterally Neck: Neck: normal visual inspection Chest: Chest palpation & inspection: normal inspection of the chest Resp: Effort & Inspection: normal respiratory effort and not labored A uscultation: clear to auscultation bilaterally and no crackles Cardio: Rate: regular rate Rhythm: regular rhythm Heart sounds: no murmurs GI: Inspection: non-distended GI Palp: Yes Soft to palpation and No Tenderness to palpation present (GI) Auscultation: normal bowel sounds : General: Yes bladder normal to palpation Back/Spine/Pelvis: Back: no CVA tenderness Skin: General skin exam: normal color Rashes: no rashes Wounds: no wounds Neuro: General: patient oriented x3 Cranial nerves: Yes Nystagmus not present Speech: normal speech Gait exam (Neuro): Normal gait present Extrem: General: normal to inspection Psych: Mental Status: mental status grossly normal Affect: normal affect Attitude: cooperative Course Vital Signs Vital signs: Vital Signs Temperature 36.3 C L 12/09/24 21:42 Temperature 36.5 C 12/09/24 23:55 Pulse Rate 70 12/09/24 23:55 Respiratory Rate 16 12/09/24 23:55 Blood Pressure 125/62 12/09/24 23:55 Pulse Oximetry 100 12/09/24 23:55 Oxygen Delivery Room Air 12/09/24 23:55 MDM - Dizziness MDM Narrative Medical decision making narrative: patient is a 39-year-old female with multiple complaints with recurrence issues. We will do workup at this time for reassurance of no major problems for the patient. Lab Data Attestation: I reviewed the patient's lab results. 12/09/24 22:18 12/09/24 22:18 Labs: Lab Results 12/09/24 12/09/24 12/09/24 Range/Units 21:49 22:18 23:00 WBC 10.5 (4.8-10.8) K/mm3 RBC 4.42 (4.20-5.40) M/mm3 Hgb 12.9 (12.0-15.0) g/dL Hct 42.9 (35.0-49.0) % MCV 97.1 (78.0-102.0) fL MCH 29.2 (27.0-31.0) pg MCHC 30.1 L (32-36) g/dL RDW 12.4 (11.6-14.4) % Plt Count 300 (150-420) K/mm3 MPV 10.3 (9.2-11.8) fl Immature Gran % (Auto) 0.3 H (0.0-0.0) % Neut % (Auto) 63.0 (50.0-70.0) % Lymph % (Auto) 30.1 (18.0-42.0) % Crane % (Auto) 5.5 (2.0-11.0) % Eos % (Auto) 0.7 L (1.0-6.0) % Baso % (Auto) 0.4 (0.0-1.0) % Lymph # (Auto) 3.17 (1.10-4.50) K/mm3 Crane # (Auto) 0.58 (0.10-0.90) K/mm3 Eos # (Auto) 0.07 (0.02-0.50) K/mm3 Baso # (Auto) 0.04 (0.00-0.10) K/mm3 Abs Immat Gran (auto) 0.03 H (0.00-0.00) K/mm3 Absolute Neuts (auto) 6.64 (1.70-7.20) K/mm3 Absolute Nucleated RBC 0.00 (0.00-0.00) K/mm3 Nucleated RBC % 0.0 (0-0.0) % Sodium 137 (136-145) mmol/L Potassium 3.6 (3.5-5.1) mmol/L Chloride 105 (98-108) mmol/L Carbon Dioxide 23 (21-32) mmol/L Anion Gap 9 (4-12) mmol/L BUN 13 (7-18) mg/dL Creatinine 0.81 (0.55-1.02) mg/dL Estim Creat Clear Calc 120 ml/min Estimated GFR > 60 (59 - ) Glucose 127 H (70-99) mg/dL POC Capillary Glucose 121 H (65-105) mg/dl Calculated Osmolality 286 (285-295) mOsm/kg Calcium 9.0 (8.5-10.1) mg/dL Total Bilirubin 0.2 (0.00-1.00) mg/dL AST 12 L (15-37) U/L ALT 21 (14-59) U/L Alkaline Phosphatase 78 (46-116) U/L Troponin I < 4.0 (0.00-60.4) ng/L Total Protein 7.8 (6.4-8.2) g/dL Albumin 3.6 (3.4-5.0) g/dL Urine Color Yellow (Yellow) Urine Appearance Clear (Clear) Urine pH 5.5 (5.0-8.0) Ur Specific [place] >= 1.030 H (1.010-1.020) Urine Protein Negative (Negative) Urine Glucose (UA) Negative (Negative) Urine Ketones Negative (Negative) Ur Blood (Man) 3+ H (Negative) Urine Nitrate Negative (Negative) Urine Bilirubin Negative (Negative) Urine Urobilinogen 0.2 (0.2-1.0) mg/dL Leukocyte Esterase Rfl Negative (Negative) AYLEEN/UL Urine RBC 3-5 H (0-2) /hpf Urine WBC 0-3 (0-3) /hpf Ur Squamous Epith Cells Moderate H (Few) /hpf Urine Bacteria 1+ H (None) /hpf Urine Mucus Few H /lpf Urine Test Negative Urine Opiates Screen Negative (Negative) Urine Methadone Screen Negative (Negative) Ur Barbiturates Screen Negative (Negative) Ur Phencyclidine Scrn Negative (Negative) Ur Amphetamine Screen Negative (Negative) U Benzodiazepines Scrn Negative (Negative) Urine Cocaine Screen Negative (Negative) U Cannabinoids Screen Negative (Negative) Imaging Data Attestation: I personally reviewed and interpreted this imaging study as follows: ECG Data EKG #1: Attestation: I personally reviewed and interpreted this ECG as follows: ECG completion date: 12/09/24 ECG completion time: 23:35 EKG Interpretation: bradycardia, sinus rhythm, no ectopy, no ST changes, normal QRS, normal QT and NL axis Discharge Plan Discharge Clinical Impression: Cephalgia, Near syncope, Dizziness Patient Disposition: Home, Self-Care Condition: Stable Instructions: Acute Headache (ED), Benign Paroxysmal Positional Vertigo (ED), Dizziness (ED) Additional Instructions: Please follow-up with the primary doctor in the next week. Come back to the ER for any further concerns. Patient Language: Solomon Islander Prescriptions: No Action topiramate 15 mg capsule, sprinkle PO omeprazole 20 mg capsule,delayed release(DR/EC) 20 mg PO DAILY norethindrone (contraceptive) 0.35 mg tablet 0.35 mg PO DAILY Qty: 84 3RF multivitamin Tablet 1 tablet PO DAILY fluoxetine 40 mg capsule 40 mg PO fluconazole 150 mg tablet 150 mg PO ONCE Qty: 2 0RF Rx Instructions: take one tablet. If symptoms persist, may repeat dose after 72 hours. metronidazole 500 mg tablet 500 mg PO Q12H Qty: 14 0RF estradiol 0.1 mg/24 hr patch weekly 1 patch transdermal WEEKLY Qty: 4 3RF Follow-up/Referrals: UNKNOWN,DOCTOR [Primary Care Provider] - Time of Disposition: 23:37
--- OUTSIDE RECORDS SUMMARY | 2024-12-09 22:12 | XMS_ITS | Clinical Summary ---
Author Organization [facility] Address [address] [place] [address] Care Team Providers Care Dictaphone Operator Name Role Phone Alanis Ward NP Primary [...] Genotyping (02/21/2022 10:44 AM CDT) CLINICAL INFORMATION: [facility] Comment:Routine exam LMP [facility] Comment:12/26/2021 Previous Pap [facility] Comment:INFORMATION NOT PROV IDED Prev. Bx [facility] Comment:INFORMATION NOT PROV IDED SOURCE: [facility] Comment:Cervix, Endocervix Pap, specimen adequacy [facility] Comment: Satisfactory for evaluation. Endocervical/transformation zone component present. HPV interp [facility] Comment:Negative for intraep ithelial lesion or malignancy. Infection: [facility] Comment: Shift in vaginal vishal suggestive of bacterial vaginosis. Wheel Shop Supervisor [facility] Comment: GRIJALVA, CT(ASCP) CT Screening location: [facility] ROBIN Espino [address] Comment [facility] Comment: EXPLANATORY NOTE: The Pap is [...] Detected NOT DETECTED Camryn Foster [facility] [place] Comment: Not Detected High Risk HPV types (16,18,31,33,35,39,45,51,52, 56,58,59,66,68) were not detected. Other HPV types which cause anogenital lesions may be present. The significance of the other types of HPV in malignant processes has not been established. Methodology: Real Time PCR Thin prep 02/21/2022 10:4 4 AM CDT 02/22/2022 12:42 AM CDT Ashley Pean SEEING EYE DOG TRAINER LAB CYTOLOGY ORDERABLES F inal Result [facility] [address] [address] ROB[address] Patel [phone] [facility] [address] [facility] [place] [address] from Last 3 Months or Most Recently Relevant to Health Maintenance Insurance [facility] CHOICE PLUS [facility] HMO/PPO Address: [facility] [id number] [place] [id number] Care Teams Dictaphone Operator Relationship Specialty Start Date End Date Alanis Ward NP [address] [facility] [address] [address] PCP - General Nurse Practitioner 05/16/24
--- OUTSIDE RECORDS SUMMARY | 2024-12-09 22:12 | XMS_ITS | Encounter Summary ---
Author Organization [facility] Address [address] [place] [address] Phone Care Team Providers Care Pharmacist In Charge Owner Name Role Phone Alanis Ward APRN, KIKI Primary Care Provid er Bridget Dean APRN, WOOLING MACHINE OPERATOR Unavailable [phone]- [phone] Reason for Visit * Reason Comments Medication Refill Encounter Details Date Type Department Care Team (Late Contact Info) Description 06/23/2023 Refill [facility] Medical Group - Family Medicine [facility] [address] [place] [address] Alanis Ward APRN, KIKI #[address] [address] Medication Refill Social History Tobacco [...] CDT Gender Identity Female 07/23/2023 4:39 PM STUDENT DEVELOPMENT SPECIALIST Sexual Orientation Straight 07/23/2023 4: 39 PM STUDENT DEVELOPMENT SPECIALIST COVID-19 Exposure Response Date Recorded In the [...] Description 05/01/2025 9:45 AM CDT Office Visit [facility] Medical Group - Family Medicine - Michael [address] [place] [address] Alanis Ward APRN, KIKI #[address] [facility] [address] [place] [phone] documented as of this encounter Visit Diagnoses Diagnosis Irritability and anger Irritability documented in this encounter Additional Health Concerns Assessment Noted Time PHQ-9 Depression Total Score: 1 05/25/20 23 7:07 AM CDT documented as of this encounter Care Teams Pharmacist In Charge Owner Relationship Specialty Start Date End Date Alanis Ward APRN, WOOLING MACHINE OPERATOR #[address] [facility] [address] [place] [address] PCP - General Advanced Practice Nurse 01/30/23 Bridget Dean APRN, WOOLING MACHINE OPERATOR #[address] [facility], [address] [place] [address] Nurse Practitioner Cardiology 01/15/24 documented as of this encounter
--- OUTSIDE RECORDS SUMMARY | 2024-12-09 22:12 | XMS_ITS | Clinical Summary ---
Author Organization [facility] Address [address] [place] [address] Phone Care Team Providers Care Director Of Community Education Name Role Phone Alanis Ward APRN, SUPERVISOR MACHINE WORKERS Primary Care Provid er Bridget Dean APRN, SUPERVISOR MACHINE WORKERS Unavailable +1- [phone] Allergies Active Allergy Reactions Criticality Noted Date [...] Department Care Team Description 12/03/2024 Results [facility] [place] [address] Alanis Ward APRN, CNP 11/30/2024 MyChart RX Renewal [facility] [place] [address] Alanis Ward APRN, CNP Medication Renewal Reviewed 11/24/2024 6:00 PM CDT - 11/24/2024 11:59 PM CDT Hospital Encounter [facility] [address] [place] [address] Alanis Ward APRN, CNP Discharge Disposition: Discharged to home or Selfcare 11/22/2024 Travel 10/30/2024 9:45 AM HONING MACHINE SET UP OPERATOR TOOL Office Visit [facility] [place] [address] Alanis Ward APRN, CNP Prediabetes (Primary Dx); Irritability and anger Discharge Disposition: Discharged to home or Selfcare 10/28/2024 Travel 09/19/2024 4:15 PM HONING MACHINE SET UP OPERATOR TOOL Office Visit [facility] [place] [address] Andreea Millre APRN, CNP Fluid level behind tympanic membrane of both ears (Primary Dx); Environmental and seasonal allergies; Neck pain; Dizziness Discharge Disposition: Discharged to home or Selfcare 09/19/2024 Travel 09/18/2024 Telephone [facility] #[address] [place] [address] Alanis Ward APRN, KIKI from [...] drink = 0.6 oz pur e alcohol) [facility] [employer] Answer Date Recorded In the past 12 [...] often do you attend chur ch or pentecostalism services? Never 09/19/2024 Do you belong to any clubs o r organizations such as confucianism groups, unions, fraternal or athletic groups, or [...] Total Score - Questions 1-9 0 10/12 [facility] [place] of Occupat ional [facility] - Occupational Stress Questionnaire Answer Date Recorded [...] any time in the past 12 m [facility], were you homeless or living in a usp (including now)? No 09/19/2024 Education Answer Date [...] CDT Gender Identity Female 07/23/2023 4:39 PM HONING MACHINE SET UP OPERATOR TOOL Sexual Orientation Straight 07/23/2023 4: 39 PM HONING MACHINE SET UP OPERATOR TOOL Last Filed Vital Signs Vital Sign Reading Time Taken Comments Blood Pressure 98/64 10/30/2024 9:40 AM HONING MACHINE SET UP OPERATOR TOOL Pulse 68 10/30/2024 9:40 AM HONING MACHINE SET UP OPERATOR TOOL Temperature 36.5 C (97.7 F) 10/30/2024 9:40 AM HONING MACHINE SET UP OPERATOR TOOL Respiratory Rate 16 10/30/2024 9:40 AM HONING MACHINE SET UP OPERATOR TOOL Oxygen Saturation 97% 10/30/2024 9:40 AM HONING MACHINE SET UP OPERATOR TOOL Inhaled Oxygen Concentration - - Weight 135.6 kg (299 lb) 10/30/2024 9:40 AM HONING MACHINE SET UP OPERATOR TOOL Height 175.3 cm (5' 9 ) 10/30/2024 9:40 AM HONING MACHINE SET UP OPERATOR TOOL Body Mass Index 44.15 10/30/2024 9:40 AM HONING MACHINE SET UP OPERATOR TOOL Plan of Treatment Upcoming Encounters Date Type Department Care Team (Late st Contact Info) Description 05/01/2025 9:45 AM CDT Office Visit [facility] - Family [facility] [address]2 [place] [address] Alanis Ward APRN, SUPERVISOR MACHINE WORKERS #[address] [address] Health Maintenance Due Date Last Done Comments [...] POCT GLYCOSYLATED HEMOGLOBIN Routine 10/30/2024 9:54 AM HONING MACHINE SET UP OPERATOR TOOL Prediabetes from Last 3 Months Results * [...] Hector Broussard M.D. MARY: MARY Report ID: [id number] Reading Location: [id number] Procedure Note Justen Broussard MD - 11/29/2024 [...] Hector Broussard M.D. MARY: MARY Report ID: [id number] Reading Location: [place] [address] IMPRESSION: No evidence of sinusitis. Alanis Ward APRN, CNP IM CT ORDERABLES Fi nal Result * POCT GLYCOSYLATED HEMOGLOBIN (10/30/2024 9:54 AM HONING MACHINE SET UP OPERATOR TOOL) HGB-A1C 5.9 4 - 6 % 10/30/2024 9:54 AM HONING MACHINE SET UP OPERATOR TOOL Alanis Ward APRN, CNP POINT OF CARE TESTIN G (MANUAL) Final Result from Last 3 Months Insurance [facility] Care Teams Director Of Community Education Relationship Specialty Start Date End Date Alanis Ward APRN, SUPERVISOR MACHINE WORKERS #[address] [place] [phone] PCP - General Advanced Practice Nurse 01/30/23 Bridget Dean APRN, SUPERVISOR MACHINE WORKERS [address], [address] [place] [address] Nurse Practitioner Cardiology 01/15/24
--- OUTSIDE RECORDS SUMMARY | 2024-12-09 22:12 | XMS_ITS | Clinical Summary ---
Author Organization [facility] Address [address] [place] [address] Care Team Providers Care Digital Director Name Role Phone SylviaAlanis TYLER Primary Care Provider [phone] [phone] Allergies Active Allergy Reactions Criticality Noted Date [...] on file Legal Sex Female 5:44 PM FIELD TRAINING AGENT Gender Identity Not on file Sexual Orientation [...] patient's age to complete this topic Insurance [facility] Care Teams Digital Director Relationship Specialty Start Date End Date Alanis Ward NP [address] [address] PCP - General NURSE PRACTITIONER 01/19/24
--- OUTSIDE RECORDS SUMMARY | 2024-12-09 22:12 | XMS_ITS | Referral Summary ---
Author Organization [facility] Building B Address [address] [place] [address] Care Team Providers Care Supervisor Commercial Fish Hatchery Name Role Phone Alanis Ward NP Primary [...] Genotyping (02/21/2022 10:44 AM CDT) CLINICAL INFORMATION: [employer] [facility] Comment:Routine exam LMP [employer] [facility] Comment:12/26/2021 Previous Pap [employer] [facility] Comment:INFORMATION NOT PROV IDED Prev. Bx [employer] [facility] Comment:INFORMATION NOT PROV IDED SOURCE: [employer] [facility] Comment:Cervix, Endocervix Pap, specimen adequacy [employer] [facility] Comment: Satisfactory for evaluation. Endocervical/transformation zone component present. HPV interp [employer] [facility] Comment:Negative for intraep ithelial lesion or malignancy. Infection: [employer] [facility] Comment: Shift in vaginal vishal suggestive of bacterial vaginosis. Office Clerk Assistant Que [employer] [facility] Comment: GRIJALVA, CT(ASCP) CT Screening location: [facility] [address], [place] [address] Comment [facility] [employer] [facility] Comment: EXPLANATORY NOTE: The Pap is [...] Risk E6/E7 Not Detected NOT DETECTED Camryn [employer] /Davina gan [place] Comment: Not Detected High Risk HPV types (16,18,31,33,35,39,45,51,52, 56,58,59,66,68) were not detected. Other HPV types which cause anogenital lesions may be present. The significance of the other types of HPV in malignant processes has not been established. Methodology: Real Time PCR Thin prep 02/21/2022 10:4 4 AM CDT 02/22/2022 12:42 AM CDT Ashley Pena SALES ADVISOR LAB CYTOLOGY ORDERABLES F inal Result [facility] [address] [place] [address] Camryn [employer] [address] [place] [address] from Last 3 Months or Most Recently Relevant to Health Maintenance Insurance [facility] CHOICE PLUS Care Teams Supervisor Commercial Fish Hatchery Relationship Specialty Start Date End Date Alanis Ward NP [address] [address] PCP - General Nurse Practitioner 05/16/24
--- OUTSIDE RECORDS SUMMARY | 2024-12-09 22:12 | XMS_ITS | Encounter Summary ---
Author Organization [facility] Address [address] [place] [address] Phone Care Team Providers Care Ointment Mill Tender Name Role Phone Alanis Ward APRN, CNP Primary Care Provid er Bridget Dean APRN, KIKI Unavailable +1- [phone] Encounter Details Date Type Department Care Team (Late st Contact Info) Description 12/03/2024 Results Follow-Up [facility] Group - Family Medicine [facility] [address] [place] [address] Alanis Ward APRN, CNP #[address] [address] Social History Tobacco Use Types Packs/Day Years Used Date Smoking Tobacco: Every Day Cigarettes 0.5 15 Passive Smoke Exposure: Current Smokeless Tobacco: Never Alcohol Use Standard Drinks/Week Comments Never 0 (1 standard drink = 0.6 oz pur e alcohol) [facility] Utilities Answer Date Recorded In the past 12 months has [employer] electric, gas, oil, or water company threatened [...] often do you attend chur ch or evangelical services? Never 09/19/2024 Do you belong to any clubs o r organizations such as baptist groups, unions, fraternal or athletic groups, or [...] Total Score - Questions 1-9 0 10/12 [facility] - Occupational Stress [...] were you homeless or living in a longterm (including now)? No 09/19/2024 Education Answer Date [...] CDT Gender Identity Female 07/23/2023 4:39 PM AUTO CLUB SAFETY PROGRAM COORDINATOR Sexual Orientation Straight 07/23/2023 4: 39 PM AUTO CLUB SAFETY PROGRAM COORDINATOR documented as of this encounter Progress Notes * Alanis Ward APRN, CNP - 12/03/2024 10:38 AM CDT Atonarp message sent documented in this encounter Plan of Treatment Upcoming Encounters Date Type Department Care Team (Late st Contact Info) Description 05/01/2025 9:45 AM CDT Office Visit [facility] #2 [place] [address] Alanis Ward APRN, CNP [address] [address] documented as of this encounter Visit Diagnoses Not on filedocumented in this encounter Additional Health Concerns Assessment Noted Time PHQ-9 Depression Total Score: 0 10/30/19 25 10:00 AM AUTO CLUB SAFETY PROGRAM COORDINATOR documented as of this encounter Care Teams Ointment Mill Tender Relationship Specialty Start Date End Date Alanis Ward APRN, CNP #[address] [place] [address] PCP - General Advanced Practice Nurse 01/30/23 Bridget Dean, QUALITY CONTROL CHECKER, FLUE LINING DIPPER [address], [address] [place] [address] Nurse Practitioner Cardiology 01/15/24 documented as of this encounter
--- OUTSIDE RECORDS SUMMARY | 2024-12-09 22:12 | XMS_ITS | Encounter Summary ---
Author Organization [facility] Address [address] [place] [address] Phone Care Team Providers Care Senior C Software Developer Name Role Phone Alanis Ward APRN, KIKI Primary Care Provid er Bridget Dean APRN, FINANCIAL SPECIALIST Unavailable +1- [phone] Reason for Visit * Reason Comments Medication Refill Encounter Details Date Type Department Care Team (Late st Contact Info) Description 09/22/2023 Refill [facility] Medical Group - Family Medicine [facility] #2 [place] [address] Alanis Ward APRN, KIKI #[address] [address] Medication Refill Social History Tobacco [...] CDT Gender Identity Female 07/23/2023 4:39 PM SAND FILLER Sexual Orientation Straight 07/23/2023 4: 39 PM SAND FILLER documented as of this encounter Miscellaneous Notes [...] 03/26/23 Office Visit Alanis Ward APRN, KIKI [facility] [place] Showing recent visits within past 182 days and meeting all other requirements Future Appointments No visits were found meeting these conditions. Showing future appointments within next 90 days and meeting all other requirements FILLER documented in this encounter Plan of Treatment Upcoming Encounters Date Type Department Care Team (Late st Contact Info) Description 05/01/2025 9:45 AM CDT [facility] - [facility] [address] [place] [phone] Alanis Ward APRN, KIKI #[address] [phone] documented as of this encounter Visit Diagnoses Diagnosis Irritability and anger Irritability documented in this encounter Additional Health Concerns Assessment Noted Time PHQ-9 Depression Total Score: 1 05/25/20 23 7:07 AM CDT documented as of this encounter Care Teams Senior C Software Developer Relationship Specialty Start Date End Date Alanis Ward APRN, FINANCIAL SPECIALIST #[address] [place] [phone] PCP - General Advanced Practice Nurse 01/30/23 Bridget Dean APRN, FINANCIAL SPECIALIST [address] [facility], [address] [place] [address] Nurse Practitioner Cardiology 01/15/24 documented as of this encounter
--- OUTSIDE RECORDS SUMMARY | 2024-12-09 22:12 | XMS_ITS | Encounter Summary ---
Author Organization [facility] Address [address] [place] [address] Phone Care Team Providers Care Project Analyst Name Role Phone Alanis Ward APRN, KIKI Primary Care Provid er Bridget Dean APRN, FORMING DEPARTMENT END FINDER Unavailable [phone]- [phone] Reason for Visit * Reason Comments Medication Refill Encounter Details Date Type Department Care Team (Late st Contact Info) Description 03/16/2023 Refill [facility] Medical Group - Family Medicine [facility] #2 [place] [address] Alanis Ward APRN, KIKI #[address] [address] Medication Refill Social History Tobacco [...] CDT Gender Identity Female 07/23/2023 4:39 PM BACK CLOSER Sexual Orientation Straight 07/23/2023 4: 39 PM BACK CLOSER COVID-19 Exposure Response Date Recorded In the [...] Group - Family Medicine - Michael [address] [place] [address] Alanis Ward APRN, KIKI #[address] [address] documented as of this encounter Visit Diagnoses Diagnosis Nonintractable episodic headache, unspecified headache type documented in this encounter Care Teams Project Analyst Relationship Specialty Start Date End Date Alanis Ward APRN, FORMING DEPARTMENT END FINDER #[address] [place] [phone] PCP - General Advanced Practice Nurse 01/30/23 Bridget Dean APRN, FORMING DEPARTMENT END FINDER [address] [place] [address] Nurse Practitioner Cardiology 01/15/24 documented as of this encounter
[2024-12-09 22:21] LABS: Basophils Absolute Auto 0.04 K/mm3 (0.00-0.10); Basophils Percent Auto 0.4 % (0.0-1.0); Eosinophils Absolute Auto 0.07 K/mm3 (0.02-0.50); Eosinophils Percent Auto 0.7 % (1.0-6.0); Hematocrit 42.9 % (35.0-49.0); Hemoglobin 12.9 g/dL (12.0-15.0); Immature Granulocyte Absolute 0.03 K/mm3 (0.00-0.00); Immature Granulocyte Percent A 0.3 % (0.0-0.0); Lymphocytes Absolute Auto 3.17 K/mm3 (1.10-4.50); Lymphocytes Percent Auto 30.1 % (18.0-42.0); Mean Corpuscular HGB Conc 30.1 g/dL (32-36); Mean Corpuscular Hemoglobin 29.2 pg (27.0-31.0); Mean Corpuscular Volume 97.1 fL (78.0-102.0); Mean Platelet Volume 10.3 fl (9.2-11.8); Monocytes Absolute Auto 0.58 K/mm3 (0.10-0.90); Monocytes Percent Auto 5.5 % (2.0-11.0); Neutrophils Absolute Auto 6.64 K/mm3 (1.70-7.20); Platelet Count Result 300 K/mm3 (150-420); Red Blood Count 4.42 M/mm3 (4.20-5.40); Red Cell Distribution Width 12.4 % (11.6-14.4); White Blood Count 10.5 K/mm3 (4.8-10.8)
[2024-12-09] MEDS: ACETAMINOPHEN 500 MG TABLET 1000 MG PO (22:35)
[2024-12-09 22:39] LABS: Alanine Aminotransferase 21 U/L (14-59); Albumin Level 3.6 g/dL (3.4-5.0); Alkaline Phosphatase 78 U/L (46-116); Anion Gap 9 mmol/L (4-12); Aspartate Amino Transferase 12 U/L (15-37); Bilirubin,Total 0.2 mg/dL (0.00-1.00); Blood Urea Nitrogen 13 mg/dL (7-18); Carbon Dioxide 23 mmol/L (21-32); Chloride 105 mmol/L (98-108); Estimated CRCL calculation 120 ml/min; Estimated Glomerular Filt Rate > 60; Glucose 127 mg/dL (70-99); Osmolality Calculated 286 mOsm/kg (285-295); Potassium 3.6 mmol/L (3.5-5.1); Sodium 137 mmol/L (136-145); Total Protein 7.8 g/dL (6.4-8.2); Troponin I < 4.0 ng/L (0.00-60.4)
[2024-12-09 23:22] LABS: Pregnancy On Board Control Positive; Urine Pregnancy Test Negative
[2024-12-09 23:25] LABS: Add Urine Microscopic? YES; Amphetamine Screen Urine Negative (Negative); Appearance Urine Clear (Clear); Barbiturate Screen Urine Negative (Negative); Benzodiazepines Screen Urine Negative (Negative); Bilirubin Urine Negative (Negative); Blood Urine 3+ (Negative); Cannabinoid Screen Urine Negative (Negative); Cocaine Screen Urine Negative (Negative); Color Urine Yellow (Yellow); Glucose Urine UA Negative (Negative); Ketones Urine Negative (Negative); Leukocyte Esterase Ur Negative LEU/UL (Negative); Methadone Screen Urine Negative (Negative); Nitrate Urine Negative (Negative); Opiate Screen Urine Negative (Negative); Phencyclidine Screen Urine Negative (Negative); Protein Urine Negative (Negative); Specific Grav Ur >= 1.030 (1.010-1.020); Urobilinogen Urine 0.2 mg/dL (0.2-1.0); pH Urine 5.5 (5.0-8.0)
[2024-12-09 23:28] LABS: Bacteria Urine 1+ /hpf; Mucus Urine Few /lpf; Squamous Epithelial Cell Urine Moderate /hpf (Few); WBC Urine 0-3 /hpf (0-3)
[2024-12-09 23:55] VITALS: BP 125/62; PULSE 70; RESP 16; TEMP 36.5; O2SAT 100
== END 2024-12-09 23:55 | disposition home or self-care (01) ==
PROVIDERS: Emergency Provider Emergency Medicine
DX: R51.9 Headache, unspecified (principal); R55 Syncope and collapse; R42 Dizziness and giddiness; Z87.891 Personal history of nicotine dependence; Z79.899 Other long term (current) drug therapy
CPT/HCPCS: 36415; 70450; 80053; 80307; 81001; 81025; 82948; 84484; 85025; 93005; 99284; A9270

== ENCOUNTER 2025-01-28 12:44 | Emergency (ER) | payer OTHER, SELFPAY ==
--- NOTE | 2025-01-28 12:46 | ED.URI ---
HPI - URI/Sore Throat General Chief Complaint: Upper Respiratory Infection Stated Complaint: Ear Pain/Sore Throat/Nausea/Dizzy Time Seen by Provider: 01/28/25 12:45 Source: patient Mode of arrival: ambulatory Limitations: no limitations History of Present Illness HPI Narrative: Radha is a 31-year-old female patient presenting to the clinic today with complaints of left ear pain, sore throat, sinus congestion/pressure, nausea, and dizziness x5 days. She reports her symptoms worsen on Sunday of this week. Denies any known fevers, chills, body aches. Nasal drainage is clear. Denies cough, chest pain, or shortness of breath. Just finished up antibiotics for MD elicited complaint: sore throat and nasal congestion Related Data Home Medications ?Medication ?Instructions ?Recorded ?Confirmed ?Last Taken ?Type fluoxetine 40 mg capsule 40 mg PO 05/05/24 01/15/25 Unknown History omeprazole 20 mg capsule,delayed 20 mg PO DAILY 05/21/24 01/28/25 Unknown History release topiramate 15 mg sprinkle capsule mg PO 05/21/24 01/15/25 Unknown History multivitamin 1 tablet PO DAILY 09/18/24 01/28/25 Unknown History Allergies Allergy/AdvReac Type Severity Reaction Status Date / Time bupropion (From Wellbutrin) AdvReac Intermediate Difficulty Verified 01/28/25 12:46 Breathing clindamycin AdvReac Intermediate Difficulty Verified 01/28/25 12:46 Breathing Review of Systems Review of Systems: Pertinent positives per HPI. Patient denies any fever, chills, rash, visual changes, cough, shortness of breath, chest pain, palpitations, vomiting, diarrhea, constipation, abdominal pain, or any urinary issues. 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 Depression Surgical History Surgical History History of hysteroscopy D & C H/O unilateral salpingectomy R ovary Family History Family History Father Diabetes mellitus Social History Social History Smoking status: Former smoker Tobacco type: cigarettes Smoking end date: 05/24/24 Alcohol intake: never Substance use: never Substance use type: does not use Do You Feel Safe in your Home?: Yes Lack of Transportation: No Lack of Food: Never True Current Housing: I Have Housing Concerned About Future Housing: No Difficulty Paying Gas/Electric Bills: No Difficulty Paying for Meds: No Currently Unemployed: No Education: High School Diploma/GED Difficulty w/ Childcare or Family Care: No Living arrangements: with family Occupation/Education: occupation Gender identity (if verbalized by the patient): Female Comments At the time of my signature, I reviewed and agree with the nursing past medical, surgical, social, and family history. There is no relevant family history pertinent to the patient complaint. Exam Narrative: General: Well-developed, well nourished, in no apparent distress Head: Normocephalic, atraumatic Eyes: Pupils equally round and reactive to light bilaterally, EOM intact, sclera and conjunctive clear, no discharge, lids normal Ears: TMs intact and clear, ear canals clear, no drainage, grossly hearing normal. Nose: Nares patent, no discharge, no inflammation, no sinus tenderness. Mouth: Oral pharynx without lesions or masses, good dentition, MMM. Neck: Supple, trachea midline, no enlargement of anterior or posterior cervical nodes, no thyroid masses or goiter palpable. Cardio: Regular rate and rhythm, s1 and s2 normal, no murmur appreciated. Resp: Clear to auscultation bilaterally, no rhonchi, rales, wheezing or rubs Course Course Emergency Course: Portions of this record may have been created with voice recognition software. Level of Care: Express Care Visit Vital Signs Vital signs: Vital Signs Temperature 36.4 C L 01/28/25 12:55 Pulse Rate 62 01/28/25 12:55 Respiratory Rate 17 01/28/25 12:55 Blood Pressure 118/61 01/28/25 12:55 Pulse Oximetry 100 01/28/25 12:55 Oxygen Delivery Room Air 01/28/25 12:55 Temperature 36.4 C L 01/28/25 12:55 Pulse Rate 62 01/28/25 12:55 Respiratory Rate 17 01/28/25 12:55 Blood Pressure 118/61 01/28/25 12:55 Pulse Oximetry 100 01/28/25 12:55 Oxygen Delivery Room Air 01/28/25 12:55 Vital signs reviewed MDM - URI/Sore Throat MDM Narrative Medical decision making narrative: At the time of visit patient is resting comfortably on the exam table. Patient appears to be nontoxic. Labs: Strep, COVID, and influenza were all performed and negative in the clinic today. We will send strep for culture. Plan: I suspect patient has acute sinusitis. Prescription for prednisone was sent to the pharmacy. Supportive measures were discussed with the patient and they voiced understanding discharge instructions and agrees to treatment plan. Return precautions reviewed Differential Diagnosis Differential diagnosis: Likely upper respiratory infection, otitis media, sinusitis, viral infection, bronchitis, influenza, pharyngitis and other (COVID) Discharge Plan Discharge Clinical Impression: Sinusitis Qualifiers: Sinusitis location: maxillary Chronicity: acute Recurrence: non-recurrent Qualified Code(s): J01.00 - Acute maxillary sinusitis, unspecified Patient Disposition: Home Condition: Stable Instructions: Antibiotic Form, Sinusitis (ED) Additional Instructions: COVID, influenza, and strep test were all negative. We will send strep for culture. Take prescription medications only as prescribed-prednisone Increase fluids and stay well hydrated Tylenol/motrin for pain/fever Flonase and OTC antihistamines as directed Vicks vapor rub to open sinuses Sinus rinses for congestion Cepacol spray, cough drops, throat lozenges, warm tea with honey/lemon, gargle salt water to soothe throat BRAT diet for diarrhea Clear liquids x 24 hours then advance as tolerated for nausea/vomiting Go to the ED if you develop a worsening in your condition- high fever not controlled by Tylenol or Motrin, dehydration, weakness, lethargy, shortness of breath, or chest pain. Follow up with your PCP in 3-5 days if symptoms persist. Patient Language: Mongolian Prescriptions: New prednisone 20 mg tablet 40 mg PO DAILY 5 Days Qty: 10 0RF No Action topiramate 15 mg capsule, sprinkle PO omeprazole 20 mg capsule,delayed release(DR/EC) 20 mg PO DAILY norethindrone (contraceptive) 0.35 mg tablet 0.35 mg PO DAILY Qty: 84 3RF multivitamin Tablet 1 tablet PO DAILY fluoxetine 40 mg capsule 40 mg PO estradiol 0.1 mg/24 hr patch weekly 1 patch transdermal WEEKLY Qty: 4 3RF Follow-up/Referrals: Sylvia,Alanis King APRN [Primary Care Provider] - Stand Alone Forms: Work/School Release IP Time of Disposition: 13:24 Quality NIHSS Nursing Documentation ED NIHSS nursing documentation: reviewed/agree
--- OUTSIDE RECORDS SUMMARY | 2025-01-28 12:46 | XMS_ITS | Encounter Summary ---
Author Organization [facility] Address [address] [place] [address] Phone Care Team Providers Care Steel Checker Name Role Phone Alanis Ward APRN, KIKI Primary Care Provid er Bridget Dean APRN, PHYSICIAN CODER Unavailable [phone]- [phone] Reason for Visit * Reason Comments Medication Refill Encounter Details Date Type Department Care Team (Late st Contact Info) Description 03/16/2023 Refill [facility] Medical Group - Family Medicine [facility] #2 [place] [address] Alanis Ward APRN, KIKI #[address] [address] Medication Refill Social History Tobacco [...] CDT Gender Identity Female 07/23/2023 4:39 PM SCREWMAKER AUTOMATIC Sexual Orientation Straight 07/23/2023 4: 39 PM SCREWMAKER AUTOMATIC COVID-19 Exposure Response Date Recorded In the [...] Group - Family Medicine - Michael #2 [place] [address] Alanis Ward APRN, KIKI #[address] [address] documented as of this encounter Visit Diagnoses Diagnosis Nonintractable episodic headache, unspecified headache type documented in this encounter Care Teams Steel Checker Relationship Specialty Start Date End Date Alanis Ward APRN, PHYSICIAN CODER #[address] [place] [phone] PCP - General Advanced Practice Nurse 01/30/23 Bridget Dean APRN, PHYSICIAN CODER [address], [address] [place] [address] Nurse Practitioner Cardiology 01/15/24 documented as of this encounter
--- OUTSIDE RECORDS SUMMARY | 2025-01-28 12:46 | XMS_ITS | Encounter Summary ---
Author Organization [facility] Address [address] [place] [address] Phone Care Team Providers Care Autocad Draftsman Name Role Phone Alanis Ward APRN, LAYOUT MECHANIC Primary Care Provid er Bridget Dean APRN, LAYOUT MECHANIC Unavailable [phone]- [phone] Reason for Visit * Reason Comments Medication Refill Encounter Details Date Type Department Care Team (Late Contact Info) Description 06/23/2023 Refill [facility] Medical Group - Family Medicine [facility] #2 [place] [address] Alanis Ward APRN, KIKI #[address] [address] Medication Refill Social History Tobacco [...] CDT Gender Identity Female 07/23/2023 4:39 PM NURSING ATTENDANT Sexual Orientation Straight 07/23/2023 4: 39 PM NURSING ATTENDANT COVID-19 Exposure Response Date Recorded In the [...] Description 05/01/2025 9:45 AM CDT Office Visit [facility] Medical Group - Family Medicine - Michael #[address] [place] [address] Alanis Ward APRN, KIKI #[address] [facility] [address] [place] [address] documented as of this encounter Visit Diagnoses Diagnosis Irritability and anger Irritability documented in this encounter Additional Health Concerns Assessment Noted Time PHQ-9 Depression Total Score: 1 05/25/20 23 7:07 AM CDT documented as of this encounter Care Teams Autocad Draftsman Relationship Specialty Start Date End Date Alanis Ward APRN, LAYOUT MECHANIC #[address] [facility] [address] [place] [address] PCP - General Advanced Practice Nurse 01/30/23 Bridget Dean APRN, LAYOUT MECHANIC [address] [facility], [address] [place] [address] Nurse Practitioner Cardiology 01/15/24 documented as of this encounter
--- OUTSIDE RECORDS SUMMARY | 2025-01-28 12:46 | XMS_ITS | Clinical Summary ---
Author Organization [facility] Address [address] [place] [address] Care Team Providers Care Associate Genetics Professor Name Role Phone Alanis Ward NP Primary [...] Genotyping (02/21/2022 10:44 AM CDT) CLINICAL INFORMATION: [facility] Comment:Routine exam LMP [facility] Comment:12/26/2021 Previous Pap [facility] Comment:INFORMATION NOT PROV IDED Prev. Bx [facility] Comment:INFORMATION NOT PROV IDED SOURCE: [facility] Comment:Cervix, Endocervix Pap, specimen adequacy [facility] Comment: Satisfactory for evaluation. Endocervical/transformation zone component present. HPV interp [facility] Comment:Negative for intraep ithelial lesion or malignancy. Infection: [facility] Comment: Shift in vaginal vishal suggestive of bacterial vaginosis. Clerical Office Que [facility] Comment: GRIJALVA, CT(ASCP) CT Screening location: [facility] [address] [place] [address] Comment [facility] Comment: EXPLANATORY NOTE: The Pap is a [...] Not Detected NOT DETECTED Camryn [facility]ina [facility] [place] Comment: Not Detected High Risk HPV types (16,18,31,33,35,39,45,51,52, 56,58,59,66,68) were not detected. Other HPV types which cause anogenital lesions may be present. The significance of the other types of HPV in malignant processes has not been established. Methodology: Real Time PCR Thin prep 02/21/2022 10:4 4 AM CDT 02/22/2022 12:42 AM CDT Ashley Pena PORTABLE GRINDING MACHINE OPERATOR LAB CYTOLOGY ORDERABLES F inal Result [facility] [address] [address] [address] [facility] [address] [facility] [address] from Last 3 Months or Most Recently Relevant to Health Maintenance Insurance [facility] [employer] PLUS Care Teams Associate Genetics Professor Relationship Specialty Start Date End Date Alanis Ward NP 2 [facility] [address] [address] PCP - General Nurse Practitioner 05/16/24
--- OUTSIDE RECORDS SUMMARY | 2025-01-28 12:46 | XMS_ITS | Referral Summary ---
Author Organization [facility] Office Building B Address [address] [place] [address] Care Team Providers Care Shank Stapler Name Role Phone Alanis Ward NP Primary [...] Genotyping (02/21/2022 10:44 AM CDT) CLINICAL INFORMATION: [facility] Comment:Routine exam LMP [facility] Comment:12/26/2021 Previous Pap [facility] Comment:INFORMATION NOT PROV IDED Prev. Bx [facility] Comment:INFORMATION NOT PROV IDED SOURCE: [facility] Comment:Cervix, Endocervix Pap, specimen adequacy [facility] Comment: Satisfactory for evaluation. Endocervical/transformation zone component present. HPV interp [facility] Comment:Negative for intraep ithelial lesion or malignancy. Infection: [facility] Comment: Shift in vaginal vishal suggestive of bacterial vaginosis. Gear Roller Que [facility] [facility] Comment: GRIJALVA, CT(ASCP) CT Screening location: [facility] [place] [facility] [address], [place] [address] Comment [facility] Comment: EXPLANATORY NOTE: The Pap is [...] Risk E6/E7 Not Detected NOT DETECTED Camryn [employer] /Davina gan [place] Comment: Not Detected High Risk HPV types (16,18,31,33,35,39,45,51,52, 56,58,59,66,68) were not detected. Other HPV types which cause anogenital lesions may be present. The significance of the other types of HPV in malignant processes has not been established. Methodology: Real Time PCR Thin prep 02/21/2022 10:4 4 AM CDT 02/22/2022 12:42 AM CDT Ashley Pena GROUNDHAND LAB CYTOLOGY ORDERABLES F inal Result [facility] [address] [place] [address] Camryn [employer] [address] [facility] [place] [address] from Last 3 Months or Most Recently Relevant to Health Maintenance Insurance [facility] CHO[facility] PLUS Care Teams Shank Stapler Relationship Specialty Start Date End Date Alanis Ward NP [address] [address] PCP - General Nurse Practitioner 05/16/24
--- OUTSIDE RECORDS SUMMARY | 2025-01-28 12:47 | XMS_ITS | Encounter Summary ---
Author Organization [facility] Address [address] [place] [address] Phone Care Team Providers Care Pants Cutter Name Role Phone Alanis Ward APRN, LOANS CONSULTANT Primary Care Provid er Bridget Dean APRN, LOANS CONSULTANT Unavailable [phone]- [phone] Reason for Visit * Reason Comments Medication Refill Encounter Details Date Type Department Care Team (Late st Contact Info) Description 09/22/2023 Refill [facility] - [facility] [address] [place] [address] Alanis Ward APRN, KIKI [address] [address] Medication Refill Social History Tobacco [...] CDT Gender Identity Female 07/23/2023 4:39 PM VENDING ROUTE SERVICER Sexual Orientation Straight 07/23/2023 4: 39 PM VENDING ROUTE SERVICER documented as of this encounter Miscellaneous Notes [...] 03/26/23 Office Visit Alanis Ward APRN, KIKI [facility] Showing recent visits within past 182 days and meeting all other requirements Future Appointments No visits were found meeting these conditions. Showing future appointments within next 90 days and meeting all other requirements ING ROUTE SERVICER documented in this encounter Plan of Treatment Upcoming Encounters Date Type Department Care Team (Late st Contact Info) Description 05/01/2025 9:45 AM CDT [facility] - [facility] - [place] [address] [place] [phone] Alanis Ward APRN, KIKI [address] [phone] documented as of this encounter Visit Diagnoses Diagnosis Irritability and anger Irritability documented in this encounter Additional Health Concerns Assessment Noted Time PHQ-9 Depression Total Score: 1 05/25/20 23 7:07 AM CDT documented as of this encounter Care Teams Pants Cutter Relationship Specialty Start Date End Date Alanis Ward APRN, LOANS CONSULTANT [address] [place] [id number] PCP - General Advanced Practice Nurse 01/30/23 Bridget Dean APRN, LOANS CONSULTANT [address] [facility], [address] [place] [address] Nurse Practitioner Cardiology 01/15/24 documented as of this encounter
--- OUTSIDE RECORDS SUMMARY | 2025-01-28 12:47 | XMS_ITS | Encounter Summary ---
Author Organization [facility] Address [address] [place] [address] Phone Care Team Providers Care Software Project Manager Name Role Phone Alanis Ward APRN, CNP Primary Care Provid er Bridget Dean APRN, KIKI Unavailable [phone]- [phone] Encounter Details Date Type Department Care Team (Late st Contact Info) Description 12/03/2024 Results Follow-Up [facility] - Family Medicine [facility] [address] [place] [address] Alanis Ward APRN, CNP #[address] [address] [place] SINUSES W/O CONTRAST Social History Tobacco Use Types Packs/Day Years Used Date Smoking Tobacco: Every Day Cigarettes 0.5 15 Passive Smoke Exposure: Current Smokeless Tobacco: Never Alcohol Use Standard Drinks/Week Comments Never 0 (1 standard drink = 0.6 oz pur e alcohol) [facility] Utilities Answer Date Recorded In the past 12 months has [employer], gas, oil, or water company threatened to [...] often do you attend chur ch or hoahaoism services? Never 09/19/2024 Do you belong to any clubs o r organizations such as sikhism groups, unions, fraternal or athletic groups, or [...] Total Score - Questions 1-9 0 10/12 [facility] - Occupational Stress [...] any time in the past 12 m [facility], were you homeless or living in a [...] CDT Gender Identity Female 07/23/2023 4:39 PM WEB APPLICATION DEVELOPER Sexual Orientation Straight 07/23/2023 4: 39 PM WEB APPLICATION DEVELOPER documented as of this encounter Progress Notes * Alanis Ward APRN, CNP - 12/03/2024 10:38 AM CDT [employer] message sent documented in this encounter Plan of Treatment Upcoming Encounters Date Type Department Care Team (Late st Contact Info) Description 05/01/2025 9:45 AM CDT Office Visit [facility] - Family Medicine [facility] [address] [place] [address] Alanis Ward APRN, CNP #[address] [address] documented as of this encounter Visit Diagnoses Not on filedocumented in this encounter Additional Health Concerns Assessment Noted Time PHQ-9 Depression Total Score: 0 10/30/19 25 10:00 AM WEB APPLICATION DEVELOPER documented as of this encounter Care Teams Software Project Manager Relationship Specialty Start Date End Date Alanis Ward APRN, CNP [address] [place] [address] PCP - General Advanced Practice Nurse 01/30/23 Bridget Dean APRN, SET DESIGNER [address], [address] [place] [address] Nurse Practitioner Cardiology 01/15/24 documented as of this encounter
--- OUTSIDE RECORDS SUMMARY | 2025-01-28 12:47 | XMS_ITS | Clinical Summary ---
Author Organization [facility] Address [address] [place] [address] Phone Care Team Providers Care Early Head Start Director Name Role Phone Alanis Ward APRN, MOVIE THEATER MANAGER Primary Care Provid er Bridget Dean APRN, MOVIE THEATER MANAGER Unavailable [phone]- [phone] Allergies Active Allergy Reactions Criticality Noted Date Comments Clindamycin Shortness of Breath High 05/16/2024 Bupropion Nausea 01/21/2024 Shaky, headache, nausea Medications omeprazole (PriLOSEC) 10 MG CAPSULE DELAYED RELEASE Take 10 mg by mouth. Active Acetaminophen (TYLENOL PO) Take by mouth. Active Syringe/Needle, Disp, (SYRINGE 3CC/23GX1 ) 23G X 1 3 ML MiscIndications :B12 deficiency USE DIRECTED 4 Each 01/16/20 24 Active IBUPROFEN PO Take by mouth. Active meclizine (ANTIVERT) 25 MG Tablet Take 1 Tablet by mouth 3 times daily as needed for Dizziness. 30 Tablet 03/17/20 24 Active topiramate (TOPAMAX) 15 MG CAPSULE SPRINKLEIndicat ions:Nonintract able episodic headache, unspecified headache type TAKE 1 CAPSULE BY MOUTH NIGHTLY 90 Capsule 1 08/29/20 24 Active estradiol (CLIMARA) 0.1 MG/24HR PATCH WEEKLY apply 1 patch topically once a week 09/13/19 25 Active Norethindrone, Contraceptive, 0.35 MG Tablet Take 1 Tablet by mouth daily. 08/06/20 24 Active FLUoxetine (PROzac) 20 MG CapsuleIndicati ons:Irritabilit y and anger Take 1 capsule by mouth once daily 30 Capsule 2 01/02/20 25 Active FLUoxetine (PROzac) 20 MG CapsuleIndicati ons:Irritabilit y and anger Take 1 Capsule by mouth daily. 30 Capsule 12/03/19 25 025 Discontinued Active Problems Problem Noted Date Diagnosed Date Vitamin D deficiency 01/16/2024 B12 deficiency 01/16/2024 Encounters Date Type Department Care Team Description 12/31/2024 [facility] [place] [address] Alanis Ward APRN, CNP Medication Refill 12/03/2024 Results Follow-Up [facility] [address] [place] [address] Alanis Ward APRN, CNP CT SINUSES W/O CONTRAST 11/30/2024 MyChart RX Renewal [facility] [address] [place] [address] Alanis Ward APRN, CNP Medication Renewal Reviewed 11/24/2024 6:00 PM CDT - 11/24/2024 11:59 PM CDT [facility] [address] [place] [address] Alanis Ward APRN, CNP Discharge Disposition: Discharged to home or Selfcare 11/22/2024 Travel from Last 3 Months Immunizations Immunization Administration [...] drink = 0.6 oz pur e alcohol) [facility] Utilities Answer Date Recorded In the past 12 months has th e electric, gas, oil, or water [employer] threatened to shut off services in your [...] often do you attend chur ch or judaism services? Never 09/19/2024 Do you belong to any clubs o r organizations such as anabaptist groups, unions, fraternal or athletic groups, or [...] Total Score - Questions 1-9 0 10/12 [facility] - Occupational [...] any time in the past 12 m [facility], were you homeless or living in a jail (including now)? No 09/19/2024 Education Answer Date [...] CDT Gender Identity Female 07/23/2023 4:39 PM TEMPERATURE INSPECTOR Sexual Orientation Straight 07/23/2023 4: 39 PM TEMPERATURE INSPECTOR Last Filed Vital Signs Vital Sign Reading Time Taken Comments Blood Pressure 98/64 10/30/2024 9:40 AM TEMPERATURE INSPECTOR Pulse 68 10/30/2024 9:40 AM TEMPERATURE INSPECTOR Temperature 36.5 C (97.7 F) 10/30/2024 9:40 AM TEMPERATURE INSPECTOR Respiratory Rate 16 10/30/2024 9:40 AM TEMPERATURE INSPECTOR Oxygen Saturation 97% 10/30/2024 9:40 AM TEMPERATURE INSPECTOR Inhaled Oxygen Concentration - - Weight 135.6 kg (299 lb) 10/30/2024 9:40 AM TEMPERATURE INSPECTOR Height 175.3 cm (5' 9 ) 10/30/2024 9:40 AM TEMPERATURE INSPECTOR Body Mass Index 44.15 10/30/2024 9:40 AM TEMPERATURE INSPECTOR Plan of Treatment Upcoming Encounters Date Type Department Care Team (Late st Contact Info) Description 05/01/2025 9:45 AM CDT Office Visit [facility] - Family Medicine - [place] [address] [place] [address] Alanis Ward APRN, MOVIE THEATER MANAGER [address] [place] [address] Health Maintenance Due Date Last Done Comments Hepatitis C Virus (HCV) Screening 1986 TdaP Immunization 1986 Hepatitis B Immunization (1 of 3 - 19+ 3-dose series) 2005 Pneumococcal Immunization Combined (1 of 2 - PCV) 2005 HPV/Cotest 2016 Cervical Cancer Screening (CCS) 02/21/2025 Pap Smear 02/21/2025 02/21/2022 Respiratory Syncytial Virus (RSV) Immunization (Adult) (1 - 1-dose 75+ series) 2061 Influenza Immunization Completed , 07/13/2023 Human Papillomavirus (HPV) Immunization Aged Out No longer eligible based on patient's age to complete this topic Meningococcal Immunization (ACWY) Aged Out No longer eligible based on patient's age to complete this topic Rotavirus Immunization Aged Out No lo nger eligible based on patient's age to complete this topic SARS-COV-2 Immunization Discontinued Procedures Procedure Name Priority Date/Time Associated Diagnosis Comments CT SINUSES W/O CONTRAST Routine 11/24/2024 6:25 PM CDT Chronic maxillary sinusitis from Last 3 Months Results * CT [...] Hector Broussard M.D. MARY: MARY Report ID: [id number] Reading Location: [place] [address] Procedure Note Justen Broussard MD - 11/29/2024 [...] Hector Broussard M.D. MARY: MARY Report ID: [id number] Reading Location: [id number] IMPRESSION: No evidence of sinusitis. Alanis Ward APRN, CNP IMAndre CT ORDERABLES Fi nal Result from Last 3 Months Insurance [facility] Care Teams Early Head Start Director Relationship Specialty Start Date End Date Alanis Ward APRN, CNP [address] [facility] [address] [place] [address] PCP - General Advanced Practice Nurse 01/30/23 Bridget Dean APRN, CNP #2 [facility] YV[facility]TE[facility]ennifer [facility], [address] [place] [address] Nurse Practitioner Cardiology 01/15/24
[2025-01-28 12:55] VITALS: BP 118/61; PULSE 62; RESP 17; TEMP 36.4; O2SAT 100
[2025-01-28 13:14] LABS: EDSTREPNEGPOS1 Negative (Negative)
[2025-01-28 13:17] LABS: EDCOVIDSCREEN Negative (Negative); EDINFLUASCREEN Negative (Negative); EDINFLUBSCREEN Negative (Negative)
== END 2025-01-28 13:28 | disposition home or self-care (01) ==
PROVIDERS: Emergency Provider Nurse Practitioner Family; PCP Nurse Practitioner
DX: J01.00 Acute maxillary sinusitis, unspecified (principal); F32.A Depression, unspecified; Z87.891 Personal history of nicotine dependence; Z20.822 Contact with and (suspected) exposure to COVID-19
CPT/HCPCS: 87081; 87426; 87804; 87880; 99213; G0463